=== PATIENT | male | born 1940 | race Caucasian/White ===

== ENCOUNTER → 2017-03-15 | Outpatient (CLI) | payer OTHER ==
[~2017-03-15] MED LIST: ANDROGEL5 GM TD; CIPROFLOXACIN500 M1 PO; FLAGYL 250 MG250 MG PO; FLAGYL500 MG PO; LISINOPRIL20 MG PO; MINIPRIN81 MG PO; NEURONTIN100 MG PO; NORCO 5-325 TA1 EACH PO; ZOFRAN ODT4 MG PO
[2017-03-15 08:49] LABS: CREATININE 1.3 mg/dL (0.7-1.3)
== END ==
LOC: CAT 07:42
PROVIDERS: Family Medicine
DX: R10.84 Generalized abdominal pain (principal)

== ENCOUNTER → 2017-03-25 | Outpatient (CLI) | payer OTHER ==
[2017-03-25] VITALS (7 sets, daily range): BP systolic 112–146; BP diastolic 61–76
[~2017-03-25] VITALS: Ht 182.9 cm; Wt 97.5 kg
[~2017-03-25] MED LIST changes: +OMEPRAZOLE 20 M20 MG PO
--- NOTE | ~2017-03-25 | S ---
[facility] [address] [place] [address] SURGICAL PATH RPT PROCEDURE Name: ARELIS SHAY Room #: REG DIANDRA Narvaez#: [id number] Admission: 03/25/17 Date of : 42 Discharge: Report #: [id number] Path Case #: [id number] PATHOLOGY REPORT DRAFT COLLECTION DATE: 03/25/2017 RECEIVED DATE: 03/25/2017 SPECIMEN(S) RECEIVED: A.Abdomimal lymph node bx
[2017-03-25 09:40] LABS: HEMATOCRIT 42.2 % (42.0-52.0); HEMOGLOBIN 14.2 gm/dL (14.0-18.0); MCH 30.8 pg (26.0-34.0); MCHC 33.6 g/dL (28.0-37.0); MCV 91.5 fL (80.0-100.0); RBC 4.62 mil/uL (4.50-6.00); RDW 13.5 % (10.5-14.5); WBC 8.2 thou/uL (4.0-11.0)
[2017-03-25 09:46] LABS: CALCIUM 9.9 mg/dL (8.5-10.1); CREATININE 1.4 mg/dL (0.7-1.3); POTASSIUM 4.8 mmol/L (3.5-5.1)
[2017-03-25 09:53] LABS: APTT 25.8 Seconds (24.5-32.8); PROTIME 10.7 Seconds (9.3-11.4)
== END | disposition home or self-care (01) ==
LOC: CAT 08:09
PROVIDERS: Family Medicine
DX: I89.8 Other specified noninfective disorders of lymphatic vessels and lymph nodes (principal); I10 Essential (primary) hypertension; G62.9 Polyneuropathy, unspecified; Z80.9 Family history of malignant neoplasm, unspecified; Z87.891 Personal history of nicotine dependence

== ENCOUNTER → 2017-04-04 | Outpatient (CLI) | payer OTHER ==
[2017-04-04 09:55] LABS: CREATININE 1.4 mg/dL (0.7-1.3)
== END ==
LOC: CAT 09:16 → EDSTATUS 09:31 → CAT 09:32
PROVIDERS: Family Medicine
DX: R59.9 Enlarged lymph nodes, unspecified (principal); R06.09 Other forms of dyspnea

== ENCOUNTER 2017-04-29 05:14 | Day surgery (SDC) | payer OTHER ==
[~2017-04-29] VITALS: Ht 177.8 cm; Wt 99.3 kg
--- NOTE | ~2017-04-29 | S ---
[facility] [address] [place] [address] SURGICAL PATH RPT PROCEDURE Name: ARELIS SHAY Room #: DEP [facility].#: [id number] Admission: 04/29/17 Date of : 42 Discharge: 04/29/17 Report #: [id number] Path Case #: [id number] PATHOLOGY REPORT COLLECTION DATE: 04/29/2017 RECEIVED DATE: 04/29/2017 SUBMITTING PHYS: Dr. Natacha White OTHER PHYS: Dr. 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 (see comment) [facility]NOPTIC CANCER STAGING REPORT SPECIMEN Specimen: Lymph node(s) Procedure: Biopsy Tumor Site: Lymph node(s) Specify Site(s): mesenteric TUMOR Histologic Type (Based on the 2008 WHO Classification): Mature B-Cell Neoplasms Follicular lymphoma SPECIAL STUDIES Immunophenotyping (Flow Cytometry and / or Immunohistochemistry): Performed, see separate report: flow cytometry [facility] [id number] COMMENT: Sections show fragments of partial residual lymph node and fibroadipose connective tissue with extensive involvement by an atypical lymphoid infiltrate. The atypical lymphocytes are predominantly small in size with irregular to angulated nuclear contours, condensed chromatin, and scant to moderate cytoplasm. From low power, it is predominantly a diffuse pattern with a background fibrocollagenized stroma. Focal areas of a follicular architecture with back to back follicles containing slightly larger irregular lymphoid cells are identified. Neither a high mitotic rate nor [address] [address] SURGICAL PATH RPT PROCEDURE Name: JASPALARELIS ROGERS Room #: DEP [facility].#: [id number] Admission: 04/29/17 Date of : 42 Discharge: 04/29/17 Report #: [id number] Path Case #: [id number] abundant single cell necrosis is seen. Geographic necrosis is not identified. To confirm the flow cytometric findings and to identify cells in a tissue architectural context, properly controlled immunohistochemical stains are performed: (Block A1) PAX-5: stains the neoplastic B cells diffusely and in follicles CD3: stains admixed T cells CD10: B cell co-expression in diffuse and follicular areas BCL-6: B cell co-expression in diffuse and follicular areas BCL-2: patchy staining, the neoplastic follicles appear non-reactive CD23: stains residual follicular dendritic cell meshwork in the follicular area MUM-1: essentially non-reactive Cyclin D-1: essentially non-reactive Ki-67: highlights a proliferative index of approximately 30-40% Flow cytometric immunophenotypic analysis was performed at [facility] ([facility]). The diagnosis is "CD10 positive monoclonal B cells detected." There are 92.4% lymphocytes. Of the lymphocytes, there are 69% T-cells with a CD4/CD8 ratio of 3.1 and no aberrant T-cell antigen expression and 33% mature B cells. The mature B cells are small in size based on the forward scatter pattern and show CD5 neg, dim CD10 pos, CD11C neg, CD19 pos, CD20 pos, CD23 neg with surface kappa light chain restriction. Flow cytometry shows monoclonal B cells (23% of total cells) with dim CD10 expression without CD5 or CD11C consistent with a CD10 positive B cell lymphoproliferative disorder. Please see separate flow cytometry report from [facility] ([facility]) ([id number]). Overall, the diagnosis is low-grade follicular lymphoma. It is grade 1-2 of 3 with both a follicular and diffuse pattern. The H and E stained slides are co-reviewed with Dr. Vielka Mccoy. The case is discussed with Dr. Natacha White on 05/01/17 at approximately 1:30 PM. (CLW:; 05/01/2017) PATHOLOGIST: Mel Diaz M.D. REPORT ELECTRONICALLY SIGNED BY: Mel Diaz M.D. DATE/TIME: 05/01/2017 21:41 * * * * * * * * * * * * GROSS PATHOLOGY: The specimen is received in formalin labeled "Arelis Shay, mesenteric biopsy". Received are multiple segments of white-allan to yellow-allan lobulated tissue measuring 5.3 x 3.2 x 0.6 cm in aggregate [address] [address] SURGICAL PATH RPT PROCEDURE Name: ARELIS SHAY Room #: DEP [facility].#: [id number] Admission: 04/29/17 Date of : 42 Discharge: 04/29/17 Report #: [id number] Path Case #: [id number] dimensions. A portion of the specimen was placed in RPMI solution and forwarded on to [facility] for flow cytometry studies from [facility]. The remainder the specimen is submitted entirely in cassettes A1 through A6. (CAA; 04/29/2017) CLINICAL HISTORY: Abdominal mass INITIAL CPT CODE(S): A; 21279, 42394, 75777, 71089, 82960, 52341, 57578, 77831, 59904, 71976 Professional services performed by [facility] at [facility] [address] [place] [address] Technical services performed by [facility] at [address] [place] [address], [address], [place] [address]. [facility] [address] [place], [place] [address] [place] [address] PHONE: [phone] DIRECTOR: Migel Huggins M.D. * * * END OF REPORT * * *
--- NOTE | ~2017-04-29 | CNG ---
[facility] [place] [address] [place] [address] CYTO-NONGYN REPORT PROCEDURE Name: NIKHIL SHAY Room #: DEP [facility]#: [id number] Admission: 04/29/17 Date of : 42 Discharge: 04/29/17 Report #: [id number] Path Case #: [id number] CYTOPATHOLOGY REPORT COLLECTION DATE: 04/29/2017 RECEIVED DATE: 04/29/2017 SUBMITTING PHYS: Dr. Natacha White OTHER PHYS: Dr. Kemi Gonsalez CLINICAL HISTORY: Abdominal mass. See also [id number]. SPECIMEN(S) RECEIVED: A.Peritoneal fluid * * * * * * * * * * * * FINAL DIAGNOSIS: A. Peritoneal fluid: - No malignant epithelial cells identified. - Highly reactive mesothelial cells identified. - Numerous lymphocytes present (see comment). 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 Please refer to separate reports to follow. The lymphocytes present in the current cytology likely represent the same. No additional studies are performed. PATHOLOGIST: Vielka Mccoy M.D. REPORT ELECTRONICALLY SIGNED BY: Vielka Mccoy M.D. DATE/TIME: 04/30/2017 16:51 * * * * * * * * * * * * GROSS PATHOLOGY: A. Peritoneal fluid: The specimen is submitted unfixed, labeled "Nikhil Shay". Received by the Cytology Department is 40 mL of white milky fluid. One ThinPrep slide and a formalin fixed cell block were prepared. (lg 04.29.2017) MOTOR TUNE UP SPECIALIST(S): NAOMY Foster([facility]) INITIAL CPT CODE(S): A; 24854, 79266 Professional services performed by [facility] at [address] [address] Technical services performed by [facility] at [address] [place] [address] CYTO-NONGYN REPORT PROCEDURE Name: NIKHIL SHAY Room #: [facility] M.R.#: [id number] Admission: 04/29/17 Date of : 42 Discharge: 04/29/17 Report #: [id number] Path Case #: [id number] [place] [address]. [facility] [address] [place] [address] PHONE: [phone] DIRECTOR: Migel Huggins M.D. * * * END OF REPORT * * *
--- NOTE | ~2017-04-29 | EKG ---
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
--- NOTE | ~2017-04-29 | O ---
[facility] [place] [address] [place] [address] OPERATIVE REPORT Name: ARELIS SHAY Room #: [facility].#: [id number] Admission: 04/29/17 Attend Phys: Natacha White MD, Discharge: 04/29/17 Date of : 42 Report #: [id number] THIS REPORT FOR: //name// CC: Natacha Gonsalez DATE OF SERVICE: 04/29/2017 PREOPERATIVE DIAGNOSES: 1. 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 2. Multiple prior bouts of diverticulitis. 3. Hypertension. 4. Neuropathy. 5. History of right upper arm benign tumor, status post excision. POSTOPERATIVE DIAGNOSES: 1. 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 2. Multiple prior bouts of diverticulitis. 3. Hypertension. 4. Neuropathy. 5. History of right upper arm benign tumor, status post excision. PROCEDURE: Laparoscopic excisional, biopsies of multiple mesenteric masses with the largest measuring 13 x 10 cm. SURGEON: Natacha White M.D. CONCRETE BUSTER OPERATOR: Dhiraj Wu MS3 ANESTHESIA: General endotracheal anesthesia. ESTIMATED BLOOD LOSS: Minimal (less than 5 mL). COMPLICATIONS: None appreciated. SPECIMENS: 1. All excised mesenteric masses to pathology (five separate specimens). 2. Intraabdominal fluid for cytology. INDICATIONS: The patient is a 76-year-old male with a history of multiple bouts of diverticulitis for which he underwent CT scan of the abdomen and pelvis. The CT scan has shown a marked inflammatory mass effect that has progressively worsened that encompasses the aorta, celiac access and superior mesenteric artery with tracking into the root of the mesentery. The patient has undergone percutaneous needle biopsy with pathology returning inconclusive and as such, indication was for surgical biopsy today. Intraoperative findings of [facility] [address] [place] [address] OPERATIVE REPORT Name: JASPALARELIS [facility] #: [facility] [id number] Admission: 04/29/17 Attend Phys: Natacha hWite MD, Discharge: 04/29/17 Date of : 42 Report #: [id number] chylous-appearing fluid were found for which this was aspirated and sent for cytology in addition to excision of multiple mesenteric masses. DESCRIPTION OF PROCEDURE: After explaining the risks, benefits and alternatives of the procedure with the patient in detail and obtaining consent, the patient was brought to the operating room and placed supine on the operating room table. After conducting a thorough timeout procedure, verifying correct patient and procedure, the patient was given general endotracheal anesthesia. Once adequate anesthesia was obtained, SCDs were hooked up to pneumatic compression device, he was given a preoperative dose of antibiotics in line with the SCIP protocol. The patient's abdomen was prepped and draped in standard surgical sterile fashion. 5 mL of 0.5% Marcaine with epinephrine were used to anesthetize the skin in the left upper quadrant and midclavicular line. A #15 bladed scalpel was used to create a small skin gregg at this location. A 5 mm Visiport was placed over 0-degree 5-mm laparoscope and was introduced through this incision site. Once intraabdominal placement was verified visually, the obturator for the trocar and laparoscope were both removed and the abdomen was insufflated to 15 mmHg using carbon dioxide gas. The laparoscope was changed to a 5-mm 30-degree laparoscope, which was reintroduced through this trocar. The entire abdomen was evaluated to ensure no injury upon entry. I now proceeded to place two trocars in the left flank. A 12 mm port was placed lateral to the umbilicus at the anterior axillary line and an additional 5 mm port was placed in the left lower quadrant. Both additional trocars were placed under direct vision after anesthetizing the skin at each location with 5 mL of 0.5% Marcaine with epinephrine and I had created appropriately sized skin nicks using #15 bladed scalpel. Laparoscope was placed to the 12 mm port, and I proceeded to identify the intra-abdominal domain. There was marked chylous ascites that were suctioned out and sent off the field as specimen through a Lueken's trap for cytology. There was an obvious bulky mass effect at the root of the mesentery of the small bowel and the central mesentery that was firm and friable. I was able to elevate the small bowel cephalad to expose the root of the mesentery and using in combination of Harmonic scalpel as well as hook electrocautery, I proceeded to resect numerous mesenteric masses as well as take shave biopsy specimen off of the largest mass that measured 13 x 10 cm in dimension. Ultimately, five separate masses were excised for pathologic diagnosis. Hemostasis was assured with electrocautery. The bowel itself did not appear involved nor compromised through excising these masses and all energy used was well away from the bowel wall at all times. I did place Mayur in the resection bed for assistance with long-term hemostasis. A laparoscope was placed back in the left upper quadrant trocar and the EndoCatch bag was placed in the 12 mm port. I then placed all the resection specimens in the EndoCatch bag, pulled the drawstring and removed it under direct vision with ease. I then closed the 12 mm fascial incision using 0 PDS suture on a Arun-Eusebia needle under direct vision. This was tied down under direct vision to ensure I did not catch a loop of bowel or omentum in the suture repair. All remaining ports were removed under direct vision after fully desufflating the abdomen. A 4-0 [facility] [address] [place] [address] OPERATIVE REPORT Name: ARELIS SHAY Room #: DEP [facility].#: [id number] Admission: 04/29/17 Attend Phys: Natacha White MD, Discharge: 04/29/17 Date of : 42 Report #: [id number] Monocryl was used in a standard subcuticular fashion for all skin incisions and Dermabond glue was applied to all skin wounds. At the end of the procedure, all instrument, needle and sponge counts were correct. The patient tolerated the procedure without incident, was awakened in the operating room and transitioned to the recovery room in stable condition with no apparent complications. All resection specimens were passed off the field to pathology fresh for lymphoma protocol. <ELECTRONICALLY SIGNED> By: Natacha White MD, FACS 04/29/17 1424 1053 1228 Natacha White MD, FACS /nt
[~2017-04-29 05:14] MED LIST changes: +ALEVE220 MG PO; +ASPIR 8181 MG PO; +METAMUCIL PAC1 UDPKT PO; +NEURONTIN300 MG PO; +OMEPRAZOLE 20 M20 M1 PO
[2017-04-29 06:20] VITALS: BP 110/72
[2017-04-29] MEDS ORDERED: NORCO 5-325 TA1 EACH PO (09:00)
[2017-04-29] MEDS ORDERED: SENOKOT-S1 TA1 PO (09:00)
[2017-04-29 09:21] VITALS: BP 110/72
== END 2017-04-29 09:50 | disposition home or self-care (01) ==
LOC: OR 05:14 → TBA 05:14 → OR 09:50
DX: C82.13 Follicular lymphoma grade II, intra-abdominal lymph nodes (principal); G62.9 Polyneuropathy, unspecified; Z79.82 Long term (current) use of aspirin; Z79.899 Other long term (current) drug therapy; Z87.891 Personal history of nicotine dependence; I10 Essential (primary) hypertension; Z98.890 Other specified postprocedural states
CPT/HCPCS: 50010; 50093; 50101; 50249; 50386; 50455; 50555; 50558; 50900; 50962; 51489; 51975; 52265; 52266; 52287; 53307; 54022; 54118; 56462; 56525; 56526; 57092; 62110; 62900; 70005

== ENCOUNTER 2017-04-29 18:32 | Emergency (ER) | payer OTHER ==
[~2017-04-29] VITALS: Ht 177.8 cm; Wt 97.5 kg
--- NOTE | ~2017-04-29 | EKG ---
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[facility] : 1940 Requested By: Emerson Owen Order Number: [id number] MD: Jonah Vargas Measurements Intervals [place] Rate: 87 P: 47 [place]: 174 QRS: 24 QRSD: 86 T: 30 QT: 338 QTc: 407 Interpretive Statements Sinus rhythm Small inferior Q waves Compared to ECG 03/26/2011 07:52:23 No significant change was found Electronically Signed On 04-30-2017 17:51:02 CDT by Jonah Vargas [email or web address] <ELECTRONICALLY SIGNED> By: Jonah Vargas MD, [facility] 04/30/17 1751 1905 04 Jonah Vargas MD, FACC /EPI
[~2017-04-29 18:32] MED LIST changes: +SENOKOT-S1 TA1 PO
[2017-04-29 19:34] LABS: ABSOLUTE NEUTROPHILS 9.8 thou/uL (1.4-8.2); BASOPHILS 0.6 % (0.0-2.0); HEMATOCRIT 42.3 % (42.0-52.0); HEMOGLOBIN 14.3 gm/dL (14.0-18.0); LYMPHOCYTES 8.4 % (24.0-44.0); MCH 30.5 pg (26.0-34.0); MCHC 33.9 g/dL (28.0-37.0); MCV 89.8 fL (80.0-100.0); MONOCYTES 2.7 % (1.0-8.0); PLATELET COUNT 189 thou/uL (150-400); POLYS 88.3 % (36.0-66.0); RBC 4.71 mil/uL (4.50-6.00); RDW 13.8 % (10.5-14.5); WBC 11.1 thou/uL (4.0-11.0)
[2017-04-29 19:35] LABS: MANUAL DIFF NO
[2017-04-29 19:48] LABS: ANION GAP 14 mmol/L (7-16); BUN 22 mg/dL (7-18); CALCIUM 9.8 mg/dL (8.5-10.1); CHLORIDE 96 mmol/L (98-107); CO2 20 mmol/L (21-32); CREATININE 1.4 mg/dL (0.7-1.3); GLUCOSE 155 mg/dL (74-106); POTASSIUM 4.6 mmol/L (3.5-5.1); SODIUM 130 mmol/L (136-145)
[2017-04-29 19:55] LABS: URINE BILIRUBIN NEGATIVE (Negative); URINE BLOOD 1+ (Negative); URINE COLOR YELLOW; URINE GLUCOSE-RANDOM* NEGATIVE (Negative); URINE KETONES NEGATIVE (Negative); URINE LEUKOCYTES-REFLEX NEGATIVE (Negative); URINE PROTEIN (DIPSTICK) NEGATIVE (Negative); URINE UROBILINOGEN 0.2 E.U./dl (0.2-1.0)
[2017-04-29 19:56] LABS: TROPONIN-I < 0.04 ng/mL (<0.04-0.07)
[2017-04-29 20:02] LABS: SQUAMOUS 0-3 Few /LPF (0-3)
[2017-04-29 20:03] LABS: CASTS None Seen /LPF (None Seen); CRYSTALS None Seen /LPF (None Seen); URINE RBC 0-2 Rare /HPF (0-2); URINE WBC-REFLEX None Seen /HPF (0-5)
== END 2017-04-29 20:58 | disposition home or self-care (01) ==
LOC: ER 18:32
PROVIDERS: Emergency Medicine
DX: R33.9 Retention of urine, unspecified (principal); N99.89 Other postprocedural complications and disorders of genitourinary system; R06.00 Dyspnea, unspecified; I10 Essential (primary) hypertension; G62.9 Polyneuropathy, unspecified; F10.99 Alcohol use, unspecified with unspecified alcohol-induced disorder; Z90.89 Acquired absence of other organs

== ENCOUNTER 2017-05-28 08:30 | Inpatient (IN) | payer OTHER ==
[2017-05-28] VITALS (24 sets, daily range): BP systolic 83–118; BP diastolic 43–102
[~2017-05-28] VITALS: Ht 177.8 cm; Wt 103.4 kg
--- NOTE | ~2017-05-28 | 2DMMODE ---
[facility] [email or web address] [address] 2 D/M-MODE ECHOCARDIOGRAM Name: JASPALARELIS ROGERS Room #: 237-P ADM IN M.R.#: [id number] Admission: 05/28/17 Attend Phys: Luis Man Discharge: Date of : 42 Date of Service: 05/29/17 1040 Report #: [id number] THIS REPORT FOR: //name// APPROVED REPORT Study performed: 05/29/2017 08:51:18 EXAM: Comprehensive 2D, Doppler, and color-flow Echocardiogram Patient Location: ICU Room #: [facility] Status: routine BSA: 2.21 HR: 75 bpm BP: 105/54 mmHg Other Information Study Quality: Fair Indications Dyspnea Hypertension/HDD Echo Enhancing Agent Indication: Endocardial border delineation Agent(s) / Amount(s) Used: Optison 3 cc 2D Dimensions LVEF(%): 57.48 (>50%) IVSd: 10.97 (7-11mm) LVOT Diam: 22.50 (18-24mm) LVDd: 44.92 mm PWd: 10.38 (7-11mm) Ascending Ao: 31.06 (22-36mm) LVDs: 31.41 (25-40mm) Aortic Root: 32.19 mm IVC: 23.00 mm Montero's LVEF: 57.48 % Aortic Valve AoV Peak Ashvin.: 1.31 m/s AO Peak Gr.: 6.91 mmHg LVOT Max P.22 mmHg LVOT Max V: 1.14 m/s JORGE Vmax: 3.46 cm2 Mitral Valve E/A Ratio: 1.2 MV Decel. Time: 191.51 ms MV E Max Ashvin.: 0.93 m/s [facility] [address] [place] [address] 2 D/M-MODE ECHOCARDIOGRAM Name: ARELIS SHAY Room #: 237-[facility].#: [id number] Admission: 05/28/17 Attend Phys: Luis Man Discharge: Date of : 42 Date of Service: 05/29/17 1040 Report #: [id number] MV A Ashvin.: 0.75 m/s MV PHT: 55.54 ms IVRT: 69.20 ms Pulmonary Valve PV Peak Ashvin.: 0.97 m/s PV Peak Gr.: 3.78 mmHg Pulmonary Vein P Vein S: 0.38 m/s P Vein A: 0.30 m/s P Vein D: 0.22 m/s P Vein A Dur.: 129.2 msec P Vein S/D Ratio: 1.73 Left Ventricle The left ventricle is normal size. There is normal left ventricular wall thickness. The left ventricular systolic function is normal. The left ventricular ejection fraction is within the normal range. LVEF is >55%. The left ventricular diastolic function is normal. Right Ventricle The right ventricle is normal size. The right ventricular systolic function is normal. Atria The left atrium size is normal. The right atrium size is normal. Aortic Valve The aortic valve is normal in structure. No aortic regurgitation is present. There is no aortic valvular stenosis. Mitral Valve The mitral valve is normal in structure. There is no mitral valve regurgitation noted. No evidence of mitral valve stenosis. Tricuspid Valve The tricuspid valve is normal in structure. There is no tricuspid valve regurgitation noted. Pulmonic Valve The pulmonary valve is normal in structure. There is no pulmonic valvular regurgitation. Great Vessels The aortic root is normal in size. IVC is dilated and collapses >50% with inspiration. [facility] [address] [id number] 2 D/M-MODE ECHOCARDIOGRAM Name: ARELIS SHAY Room #: 237-P [facility] IN .R.#: [id number] Admission: 05/28/17 Attend Phys: Luis Man Discharge: Date of : 42 Date of Service: 05/29/17 1040 Report #: [id number] Pericardium There is no pericardial effusion. <Conclusion> The left ventricle is normal size. LVEF is >55%. The aortic valve is normal in structure. The mitral valve is normal in structure. The left atrium size is normal. The aortic valve is normal in structure. The mitral valve is normal in structure. The tricuspid valve is normal in structure. The pulmonary valve is normal in structure. The aortic root is normal in size. <ELECTRONICALLY SIGNED> By: Vijay Howard MD 05/29/17 1040 1040 1040 Vijay Howard MD /INF
--- NOTE | ~2017-05-28 | HC ---
[facility] [place] [address] CONSULTATION Name: ARELIS SHAY Room #: 237-P ADM IN M.R.#: [id number] Admission: 05/28/17 Attend Phys: Luis Man MD Discharge: Date of : 42 Report #: [id number] THIS REPORT FOR: //name// CC: Luis Gonsalez REASON FOR CONSULTATION: I was asked to evaluate concerning possible sepsis in the setting of chemotherapy for lymphoma. HISTORY OF PRESENT ILLNESS: The patient was a 76-year-old diagnosed with lymphoma involving his abdominal nodes. No bone marrow biopsy was obtained. Started on Rituxan and Treanda on 05/13/2017. Although he has had no neutropenia, he has had temperatures up to 102 degrees over the last week. He was placed on Levaquin initially without improvement. Therefore, admitted because of progressive weakness. He reports progressive shortness of breath. Some peripheral edema. No headache. Mild mucosal irritation to his mouth. No abdominal pain or vomiting. He has had loose liquid stools for the past 6 months. No blood in the stools identified. No dysuria or frequency. No arthritis symptoms or rash. No travel. No other exposures to ill persons. ALLERGIES: None known. MEDICATIONS: As noted on his MAR, recently on Levaquin, now given a dose of Zosyn. PAST MEDICAL HISTORY: Hypertension, right rotator cuff surgery, pilonidal cyst removal, tonsillectomy, bilateral cataract surgeries, diverticulitis. FAMILY HISTORY: Noncontributory. SOCIAL HISTORY: Past smoker. No significant alcohol intake. REVIEW OF SYSTEMS: Upon arrival to the Emergency Room, he was found to be hypotensive with blood pressures in the 70s. Mental status remained normal. He had poor urine output, was given IV fluids and transferred to the intensive care unit for further treatment and monitoring. Review of systems otherwise negative other than what has been described above. PHYSICAL EXAMINATION: VITAL SIGNS: Afebrile, pulse 71, respiratory rate 18, blood pressure 87/47. GENERAL: He was alert and cooperative and on room air, his O2 saturation was 95%. SKIN: Unremarkable. LYMPHATIC: Small node evident in the right axilla. HEENT: With dry mucous membranes. Mild mucositis involving his gingiva and angular cheilitis. NECK: Supple. [address] [address] CONSULTATION Name: ARELIS SHAY Room #: [address] [place] [address] [place] .R.#: [id number] Admission: 05/28/17 Attend Phys: Luis Man MD Discharge: Date of : 42 Report #: [id number] LUNGS: Clear. HEART: Regular, without murmur. ABDOMEN: Soft, no hepatosplenomegaly or mass appreciated. EXTREMITIES: Trace peripheral edema. NEUROLOGIC: Normal. LABORATORY AND DIAGNOSTIC STUDIES: Lactate 2.3. Venous ultrasound of the lower extremities was negative for DVT. Urinalysis unremarkable. Liver function tests normal. Hemoglobin 12.8, WBC 10.2, platelet count 94,000, differential unremarkable. Sodium 129, potassium 4.2, bicarbonate of 19, creatinine 3.4. BNP 7657. Chest x-ray, no acute infiltrates. IMPRESSION: A 76-year-old undergoing chemotherapy for lymphoma, presents with hypotension, fever, acute renal failure, metabolic acidosis, and dyspnea. I question whether some of this is drug-induced changes. Source of infection yet not identified with no evidence of end-organ disease thus far. He is not neutropenic. PLAN: Recommend IV fluids, empiric broad antibiotic coverage pending culture results. Followup chest x-ray, obtain echocardiogram, monitor stool output noting that in March 2017, he had a CT scan with lesions at the root of the mesentery with chronically occluded superior mesenteric artery. <ELECTRONICALLY SIGNED> By: Ashish Louis MD 05/29/17 1339 1544 0139 Ashish Louis MD /nt
--- NOTE | ~2017-05-28 | D ---
[facility] [address] DISCHARGE SUMMARY Name: ARELIS SHAY Room #: 408-P [facility] IN .R.#: [id number] Admission: 05/28/17 Attend Phys: Luis Man MD Discharge: 05/31/17 Date of : 42 Report #: [id number] THIS REPORT FOR: //name// CC: Luis Gonsalez DATE OF SERVICE: 05/31/2017 HISTORY OF PRESENT ILLNESS: The patient is a 76-year-old man with newly diagnosed lymphoma who had first chemotherapy on 05/13/2017. The patient came to the hospital with fever, lightheadedness and acute renal failure. Blood pressure was in 80s. Please refer to the admission H and P for details. HOSPITALIZATION COURSE: The patient was hospitalized for known neutropenic fever, suspected sepsis, acute renal failure. The exact etiology of fever was not known. Infectious Disease specialist was consulted. The patient was started on broad-spectrum antibiotics. Cardiac echo was obtained that showed normal ejection fraction. The patient has remained afebrile during the hospital stay. Chest x-ray was normal, blood culture showed no growth, and urinalysis was unremarkable. On IV fluids, and with improving blood pressure, kidney function improved as well. Structural [employer] Equipment Erector saw the patient. NSAIDs and DUNIA inhibitors were discontinued. Creatinine on admission was 3.4. Currently, creatinine is 1.3. With improvement of blood pressure and electrolytes, the patient felt much better. The patient has remained afebrile. Cultures showed no growth. Currently, the patient's condition is acceptable as documented in the patient's chart. DISCHARGE DIAGNOSES: 1. No neutropenic fever, exact source is unknown. The patient is currently afebrile. Omnicef will be continued for 1 more week. 2. Acute renal failure on chronic kidney disease, stage 3. Most likely due to combination of hypotension, nonsteroidal anti-inflammatory drugs and DUNIA inhibitor. Resolved. Creatinine today is 1.3, from 3.5 on admission. 3. Hyponatremia, resolved on intravenous fluids. 4. Shortness of breath on admission, resolved. Lungs are clear, oxygen saturation remains normal, x-ray is clear and lower extremity Doppler ultrasound is negative for deep venous thrombosis. SECONDARY DIAGNOSES: Include newly diagnosed lymphoma, followed by oncologist. Hypertension, peripheral neuropathy. DISPOSITION: The patient is discharged home. [address] [address] DISCHARGE SUMMARY Name: ARELIS SHAY Room #: 408-P [facility] IN .R.#: [id number] Admission: 05/28/17 Attend Phys: Luis Man MD Discharge: 05/31/17 Date of : 41 Report #: [id number] DISCHARGE MEDICATIONS: Please refer to the medication reconciliation list. As noted, Omnicef will be continued for 1 week. FOLLOWUP PLAN: The patient will follow up in Oncology Clinic as advised in 1-2 weeks. I spent greater than 30 minutes to coordinate the patient's discharge from the hospital. By: 1145 2046 Luis Man MD /nt
--- NOTE | ~2017-05-28 | HC ---
[facility] [place] [place] [address] CONSULTATION Name: ARELIS SHAY Room #: 408-P ADM IN M.R.#: [id number] Admission: 05/28/17 Attend Phys: Luis Man MD Discharge: Date of : 41 Report #: [id number] THIS REPORT FOR: //name// CC: Kayy Gonsalez patient's primary physician REASON FOR CONSULTATION: History of lymphoma and fever. 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 The patient began chemotherapy of Treanda given for 2 days, rituximab given 1 day about May 09 or shortly after that after he had received education. He had been feeling a little bit better perhaps and ____ chemo and then maybe about a week and a half ago began having some low-grade fevers as an outpatient. His counts were stable, but because of the concern about possible infection, he was begun on Levaquin antibiotic. This did not improve. He was noted to be progressively weaker. He was seen by his daughter who checked his blood pressure yesterday, and I believe his systolic was in the 70s and he came to the Emergency Room for evaluation. Here, his systolic blood pressure was low that was confirmed. He was also found to have a creatinine that was up to 3.4, which is higher than usual for him. He was admitted for possible sepsis as his lactic acid was elevated. He did have the fever and does not know that he had any last night. He has not had really nausea and vomiting. He thinks he has been eating and drinking fairly well, but it is probably slightly decreased. He does have discomfort on the soft palate of his mouth ____ tender in general. He has not used any specific medicines for it. He does not feel like his breathing is any worse other than being fatigued. He does not have any new skin rash. He does not have any new adenopathy. His belly pain for which we began the chemotherapy may be slightly better as we think that it was related to the lymphoma. He still has his chronic some leg swelling but not much worse than usual. No new diarrhea, though he does have sort of loose bowels. No blood in his urine or stool. PAST MEDICAL HISTORY: Notable for the diagnosis of follicular grade 1-2 lymphoma, status post first round of chemotherapy with Treanda and rituximab about 2 weeks ago, unclear at this time whether it is responding or not. Also, history of diverticulitis in the past, history of some lymphadenopathy back in January 2015 of the axilla, but that had been after a febrile illness. Also a [facility] [address] [place] [address] CONSULTATION Name: ARELIS SHAY Room #: 408-P [facility] IN .R.#: [id number] Admission: 05/28/17 Attend Phys: Luis Man MD Discharge: Date of : 41 Report #: [id number] history of hypertension in the past. Leg pain at night. History of erythrocytosis, which probably in the past was related to testosterone usage. Also, he has some history of postoperative urinary retention. PAST SURGERIES: Bilateral cataract surgery and tonsillectomy and pilonidal cyst removal and a right rotator cuff surgery and also neuropathy. 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 Past smoker. No significant alcohol intake. ADDENDUM CURRENT MEDICATIONS: Include prednisone 20 mg a day, aspirin 81 mg a day, electrolyte replacement protocols, pantoprazole 40 mg daily, heparin 5000 units subq, Zosyn 2.25 grams q. 6 IV, Tylenol p.r.n., MiraLax p.r.n., Zofran p.r.n., nitroglycerin p.r.n. ALLERGIES: None known. PHYSICAL EXAMINATION: GENERAL: The patient appears his stated age. VITAL SIGNS: Height is 5 feet 10 inches, which is 177.8 cm; weight 103.4 kilograms, which is 229 pounds; blood pressure is recently 86/42 when he was admitted yesterday, it was 84/44, has been up to 115; O2 sat 97%, respirations 24, pulse 80, temperature 98.1. HEENT: Face is symmetrical. MOOD: He is alert, pleasant and conversant. NEUROLOGIC: His face is symmetric. His speech pattern is normal. He is moving all extremities. He is beginning to feed himself. LYMPHATICS: No enlarged lymph nodes in the supraclavicular, cervical, axillary or inguinal region. ABDOMEN: Obese, nontender, no masses. EXTREMITIES: Without clubbing or cyanosis. There may be some trace edema. Oropharynx does have the mucosal irritation on the soft palate not very red, but it just looks a little bit irritated. LABORATORY REVIEW: Here showed on admission a creatinine of 3.4 and now down to 2.3. Note the baseline back in April was 1.4. Transaminases normal. Albumin 1.8 today. Note that in the past, it had been 3.6. Lactic acid on admit had been 3.7 and was down to 2.3. White count yesterday 10.2, today 8.1. Hemoglobin today 11.4. Platelet count yesterday was 94 and today 115. The patient did have 2 atypical lymphocytes yesterday. Absolute neutrophils count is 7.1 thousand today. UA does not show any white cells or ketones. RADIOLOGIC STUDIES THIS ADMIT: Include an ultrasound of both legs, which did not reveal clots. Also, the patient had a portable chest x-ray yesterday that [address] [address] CONSULTATION Name: ARELIS SHAY Room #: [facility]- ADM IN .R.#: [id number] Admission: 05/28/17 Attend Phys: Luis Man MD Discharge: Date of : 41 Report #: [id number] showed no acute cardiopulmonary process identified. DISCUSSION: I called the patient's daughter, Awilda, at cell phone [phone] to discuss the case. I told her that I thought her dad was doing better that I expect him to be here in the hospital for perhaps 3-5 days and that it would be, of course, dependent upon whether he continues to make improvement, if cultures come back positive or other etiology of his sickness is found that we would also be probably pushing back chemotherapy at least 2 weeks and that it would be dependent upon how strong he is doing at that time. ASSESSMENT AND PLAN: 1. Follicular grade 1-2 low-grade lymphoma, ____ but clinically, it sounds like he might have been having some less abdominal symptoms. We will probably hold second round for a week or two until he gets stronger. 2. Viral episode. I would be suspicious of viral illness given the continued low-grade fever and the mild mucosal irritation of his soft palate. We will defer antibiotics, etc., to Dr. Win Louis. 3. Relative hypotension. We will defer medications for hypertension to others involved. 4. Urinary retention. We will defer Rapaflo use to them. 5. Renal insufficiency, improved. We will defer hydration. Most likely this might have been related to his use of nonsteroidals as an outpatient. 6. Weakness. Physical Therapy will see the patient. 7. Protein-calorie malnutrition. Dietary will most likely see the patient. We will most likely be using supplements. We will follow with you. <ELECTRONICALLY SIGNED> By: Peter Chambers MD 05/31/17 0801 0837 0047 Peter Chambers MD /nt
--- NOTE | ~2017-05-28 | EKG ---
[address] [place] [address] ELECTROCARDIOGRAM REPORT Name: ARELIS SHAY [id number] Admission: 05/28/17 Attend Phys: Discharge: Date of : 41 Report #: [id number] THIS REPORT FOR: //name// [facility] ED Test Date: 2017-05-28 Test Time: 08:44:54 Pat Name: ARELIS SHAY Department: Room: Gender: Buck Presser: NICHELLE : 1940 Requested By: Fior Hinkle Order Number: [id number] MD: Jose Ramon Owen Measurements Intervals [place] Rate: 87 P: 37 CA: 180 QRS: 14 QRSD: 89 T: -13 QT: 355 QTc: 427 Interpretive Statements Sinus rhythm Low voltage, extremity leads Electronically Signed On 05-28-2017 10:44:26 CDT by Jose Ramon Owen [email or web address] <ELECTRONICALLY SIGNED> By: Jose Ramon Owen MD 05/28/17 1044 0844 0844 Jose Ramon Owen MD /EPI
--- NOTE | ~2017-05-28 | HC ---
[facility] [place] [address] CONSULTATION Name: ARELIS SHAY Room #: 408-P [facility] IN M.R.#: [id number] Admission: 05/28/17 Attend Phys: Luis Man MD Discharge: 05/31/17 Date of : 41 Report #: [id number] THIS REPORT FOR: //name// CC: Luis Gonsalez REASON FOR CONSULTATION: Elevated creatinine. REASON FOR PRESENTATION: Weakness. HISTORY OF PRESENT ILLNESS: A 76-year-old with newly diagnosed lymphoma. He is known to have chronic kidney disease with a baseline creatinine of around 1.3. He presented to the hospital complaining of shortness of breath, dizziness, lightheadedness. He reported that his blood pressure has been on the low side. He also reported fever up to 102. He is going through cycles of chemotherapy for his newly diagnosed lymphoma and that includes rituximab and Treanda. He had been taking his blood pressure medications along with Aleve on a daily basis for the last couple of days before his presentation. He has no chest pain. There are no urinary symptoms. On presentation to the emergency room, he was found to have an elevated creatinine up to 3.4 mandating a Nephrology consultation. PAST MEDICAL HISTORY: 1. Hypertension. 2. Pilonidal cyst. 3. Tonsillectomy. 4. Cataract. 5. Diverticulitis. 6. Newly diagnosed lymphoma. SOCIAL HISTORY: Ex-smoker. 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 MEDICATIONS: 1. Lisinopril. 2. Aspirin. 3. Naproxen. 4. Omeprazole. 5. Prednisone. FAMILY HISTORY: Significant for hypertension. REVIEW OF SYSTEMS: GENERAL: Significant for fever and chills. CARDIOVASCULAR: Significant for shortness of breath. PULMONARY: No cough or hemoptysis. GASTROINTESTINAL: No nausea or vomiting. [facility] [address] [place] [address] CONSULTATION Name: ARELIS SHAY Room #: [address] [place] [address]#: [id number] Admission: 05/28/17 Attend Phys: Luis Man MD Discharge: 05/31/17 Date of : 41 Report #: [id number] GENITOURINARY: No frequency, no urgency. SKIN: No rash or ulcerations. PHYSICAL EXAMINATION: VITAL SIGNS: He is still hypotensive, blood pressure 86/42. Pulse rate 80. HEAD AND NECK: No jugular venous distention, no bruit, no thyromegaly. CARDIOVASCULAR: Regular with no rub detected. ABDOMEN: Soft, nontender with no hepatosplenomegaly. LOWER EXTREMITIES: No edema with intact peripheral pulses. LABORATORY VALUES: Reviewed. Most recent creatinine is actually down to 2.3. Sodium 129. Hemoglobin 11.4. Chest x-ray reviewed with no acute process. ASSESSMENT, IMPRESSION, PLAN: 1. Acute kidney injury. 2. Hyponatremia. 3. Hypomagnesemia. 4. Hypotension. 5. Fever in an immune compromised person. 6. Newly diagnosed lymphoma. 7. The patient's acute kidney injury is well explained by angiotensin converting enzyme inhibitor, nonsteroidal anti-inflammatory medications with hypotensive episodes. 8. Continue with aggressive fluid resuscitation. 9. He had made significant amount of urine in the last 24 hours and his creatinine is actually on the trend down. 10. I will bolus with intravenous fluid. 11. Pancultures. 12. Septic workup given his immune compromised status. 13. Antibiotic per Infectious Disease. 14. Discontinue lisinopril. 15. Discontinue Aleve. 16. Expect him to fully recover with hydration. <ELECTRONICALLY SIGNED> By: Kayy Rojas MD 06/05/17 1000 0811 2123 Kayy Rojas MD /nt
[2017-05-28] MEDS ORDERED: ALLOPURINOL 30300 M2 PO (08:44)
[2017-05-28] MEDS ORDERED: DOVONEX60 GM TOP (08:46)
[2017-05-28] MEDS ORDERED: LIDODERM1 EACH TRANSDERM (08:47)
[2017-05-28] MEDS ORDERED: ONDANSETRON ODT8 MG PO (08:49)
[2017-05-28] MEDS ORDERED: PREDNISONE 20 M20 MG PO (08:49)
[2017-05-28] MEDS ORDERED: RAPAFLO8 MG PO (08:50)
[2017-05-28 08:59] LABS: HEMATOCRIT 37.2 % (42.0-52.0); HEMOGLOBIN 12.8 gm/dL (14.0-18.0); MCH 30.5 pg (26.0-34.0); MCHC 34.3 g/dL (28.0-37.0); MCV 88.9 fL (80.0-100.0); RBC 4.18 mil/uL (4.50-6.00); RDW 14.4 % (10.5-14.5); WBC 10.2 thou/uL (4.0-11.0)
[2017-05-28 09:01] LABS: MANUAL DIFF YES
[2017-05-28 09:08] LABS: CALCIUM 9.1 mg/dL (8.5-10.1); CREATININE 3.4 mg/dL (0.7-1.3); POTASSIUM 4.2 mmol/L (3.5-5.1)
[2017-05-28 09:17] LABS: TROPONIN-I 0.07 ng/mL (<0.04-0.07)
[2017-05-28 09:22] LABS: ABSOLUTE NEUTROPHILS 8.9 thou/uL (1.4-8.2); TOTAL CELL COUNT 100
[2017-05-28 09:23] LABS: ANISOCYTOSIS 1+; ATYPICAL LYMPHS 2 %
[2017-05-28 09:24] LABS: PLATELET COUNT 94 thou/uL (150-400)
[2017-05-28 09:36] LABS: ALBUMIN 2.4 g/dL (3.4-5.0); ALKALINE PHOSPHATASE 67 U/L (46-116); DIRECT BILIRUBIN < 0.1 mg/dL (<0.1-0.3); SGOT 24 U/L (15-37); SGPT 30 U/L (30-65); TOTAL BILIRUBIN 0.4 mg/dL (<0.1-1.0); TOTAL PROTEIN 5.1 g/dL (6.4-8.2)
[2017-05-28 10:10] LABS: URINE BILIRUBIN NEGATIVE (Negative); URINE BLOOD NEGATIVE (Negative); URINE COLOR YELLOW; URINE GLUCOSE-RANDOM* NEGATIVE (Negative); URINE KETONES NEGATIVE (Negative); URINE LEUKOCYTES-REFLEX NEGATIVE (Negative); URINE PROTEIN (DIPSTICK) NEGATIVE (Negative); URINE SPECIFIC GRAVITY 1.025 (1.003-1.035); URINE UROBILINOGEN 0.2 E.U./dl (0.2-1.0)
[2017-05-29] VITALS (46 sets, daily range): BP systolic 78–138; BP diastolic 40–97
[2017-05-29 05:03] LABS: HEMATOCRIT 33.7 % (42.0-52.0); HEMOGLOBIN 11.4 gm/dL (14.0-18.0); MCH 30.3 pg (26.0-34.0); MCHC 33.8 g/dL (28.0-37.0); MCV 89.6 fL (80.0-100.0); PLATELET COUNT 115 thou/uL (150-400); RBC 3.76 mil/uL (4.50-6.00); RDW 14.3 % (10.5-14.5); WBC 8.1 thou/uL (4.0-11.0)
[2017-05-29 05:10] LABS: MANUAL DIFF YES
[2017-05-29 05:18] LABS: ALBUMIN 1.8 g/dL (3.4-5.0); CALCIUM 8.4 mg/dL (8.5-10.1); MAGNESIUM 1.3 mg/dL (1.8-2.4); POTASSIUM 4.4 mmol/L (3.5-5.1)
[2017-05-29 05:20] LABS: CREATININE 2.3 mg/dL (0.7-1.3)
[2017-05-29 05:46] LABS: ABSOLUTE NEUTROPHILS 7.1 thou/uL (1.4-8.2); TOTAL CELL COUNT 100; TOXIC GRANULATION SLIGHT
[2017-05-29 05:48] LABS: LARGE PLATELETS OCCASIONAL
[2017-05-30] VITALS (10 sets, daily range): BP systolic 99–134; BP diastolic 42–91
[2017-05-30 06:04] LABS: BASOPHILS 0.5 % (0.0-2.0); EOSINOPHILS 1.5 % (0.0-3.0); HEMATOCRIT 32.5 % (42.0-52.0); LYMPHOCYTES 14.8 % (24.0-44.0); MCH 30.3 pg (26.0-34.0); MCHC 33.9 g/dL (28.0-37.0); MCV 89.2 fL (80.0-100.0); PLATELET COUNT 135 thou/uL (150-400); POLYS 80.2 % (36.0-66.0); RBC 3.64 mil/uL (4.50-6.00); RDW 14.4 % (10.5-14.5); WBC 6.2 thou/uL (4.0-11.0)
[2017-05-30 06:15] LABS: MANUAL DIFF NO
[2017-05-30 06:19] LABS: ALBUMIN 1.8 g/dL (3.4-5.0); CALCIUM 8.6 mg/dL (8.5-10.1); CREATININE 1.5 mg/dL (0.7-1.3); PHOSPHORUS 3.1 mg/dL (2.5-4.9); POTASSIUM 4.3 mmol/L (3.5-5.1)
[2017-05-31 03:43] LABS: ABSOLUTE NEUTROPHILS 2.9 thou/uL (1.4-8.2); BASOPHILS 0.5 % (0.0-2.0); EOSINOPHILS 6.5 % (0.0-3.0); HEMATOCRIT 33.2 % (42.0-52.0); HEMOGLOBIN 11.5 gm/dL (14.0-18.0); MCH 30.7 pg (26.0-34.0); MCHC 34.6 g/dL (28.0-37.0); MCV 88.6 fL (80.0-100.0); PLATELET COUNT 142 thou/uL (150-400); RBC 3.75 mil/uL (4.50-6.00); RDW 14.2 % (10.5-14.5); WBC 4.1 thou/uL (4.0-11.0)
[2017-05-31 03:53] LABS: ALBUMIN 1.9 g/dL (3.4-5.0); CALCIUM 8.7 mg/dL (8.5-10.1); CREATININE 1.3 mg/dL (0.7-1.3); PHOSPHORUS 3.4 mg/dL (2.5-4.9); POTASSIUM 4.5 mmol/L (3.5-5.1)
[2017-05-31 04:04] LABS: MANUAL DIFF NO
[2017-05-31 04:20] VITALS: BP 103/54
[2017-05-31 07:36] VITALS: BP 119/51
[2017-05-31] MEDS ORDERED: CEFDINIR300 MG PO (11:47)
[2017-05-31 12:02] VITALS: BP 119/51
== END 2017-05-31 12:50 | disposition home or self-care (01) | DRG 682 ==
LOC: ER 08:30 → EROBS 10:52 → ICU 10:52 → EROBS 13:40 → ICU 14:01 → 4N 05-30 11:15 → ENTRNSPT 05-31 12:42 → EDTRNSPTSTS 05-31 12:44 → 4N 05-31 12:50
PROVIDERS: Emergency Medicine; Hospitalist; Internal Medicine Endocrinology, Diabetes & Metabolism; Nurse Practitioner
DX: N17.9 Acute kidney failure, unspecified (principal); E43 Unspecified severe protein-calorie malnutrition; E87.1 Hypo-osmolality and hyponatremia; C85.90 Non-Hodgkin lymphoma, unspecified, unspecified site; G62.9 Polyneuropathy, unspecified; E86.0 Dehydration; I95.9 Hypotension, unspecified; I12.9 Hypertensive chronic kidney disease with stage 1 through stage 4 chronic kidney disease, or unspecified chronic kidney disease; Z68.32 Body mass index [BMI] 32.0-32.9, adult; E83.42 Hypomagnesemia; R33.9 Retention of urine, unspecified; N18.3 Chronic kidney disease, stage 3 (moderate); D69.6 Thrombocytopenia, unspecified; Z79.1 Long term (current) use of non-steroidal anti-inflammatories (NSAID); Z98.42 Cataract extraction status, left eye; Z98.41 Cataract extraction status, right eye; Z87.891 Personal history of nicotine dependence
CPT/HCPCS: 10078; 10790

== ENCOUNTER 2017-11-08 21:36 | Inpatient (IN) | payer OTHER ==
[~2017-11-08] VITALS: Ht 177.8 cm; Wt 98.3 kg
--- NOTE | ~2017-11-08 | HC ---
[facility] [place] [address] CONSULTATION Name: ARELIS SHAY Room #: 410-P [facility] IN M.R.#: [id number] Admission: 11/09/17 Attend Phys: Andrews Riley MD Discharge: 11/11/17 Date of : 41 Report #: [id number] THIS REPORT FOR: //name// CC: Keith Cordon MD DATE OF SERVICE: 11/09/2017 HISTORY OF PRESENT ILLNESS: The patient is a 77-year-old male with abdominal pain. He has a history of retroperitoneal mass that was biopsied last fall and was consistent with a lymphoma. He has been followed by Dr. Chambers and has been undergoing chemotherapy. His last chemotherapy dose was 10/02/2017. The mass from previous CTs may be causing a mass effect on the celiac trunk and the SMA and the patient has a known stenosis in both of those areas. The patient states increased abdominal pain over the last week. The pain is fairly constant. It does not necessarily occur after a meal predictably. His weight has actually been fairly stable. He does have a history of chronic diarrhea. He has been seen by my partner, Dr. Azevedo in the past and was started on colestipol, which was helpful for his diarrhea. His last colonoscopy was in 2015, which was essentially negative. No previous history of upper endoscopy. He denies any dysphagia or odynophagia. He is taking an 81 mg aspirin. The pain he describes is primarily midepigastric and somewhat periumbilical. He denies any fevers or chills. No current nausea and vomiting, no chest pain or shortness of breath currently. Interventional Radiology was consulted for the possibility of stent placement; however, when comparing his previous CT scans, the amount of stenosis in the celiac and the SMA are essentially unchanged and since the patient is not having pain predictably after a meal and instead his pain is more constant, Radiology suspect this may be related to some other etiology. Of note, on the most recent CT, there is a possible duodenal wall thickening from possible metastatic disease or duodenitis and recommended endoscopy. PAST MEDICAL HISTORY: History of lymphoma, known mesenteric stenosis, hypertension, previous tonsillectomy, bilateral cataract surgery, previous history of diverticulitis, chronic diarrhea, previous rotator cuff surgery. REVIEW OF SYSTEMS: As per HPI. ALLERGIES: No known drug allergies. CURRENT MEDICATIONS: Pepcid, pantoprazole, Tylenol p.r.n., IV fluids, Zofran p.r.n., morphine p.r.n. [address] [address] CONSULTATION Name: ARELIS SHAY Room #: [facility] IN M.R.#: [id number] Admission: 11/09/17 Attend Phys: Andrews Riley MD Discharge: 11/11/17 Date of : 41 Report #: [id number] FAMILY HISTORY: Negative for colon cancer in immediate family members, although his uncle had a history of colon cancer. SOCIAL HISTORY: Denies any tobacco or alcohol use. PHYSICAL EXAMINATION: VITAL SIGNS: Temperature is 97.5, pulse 69, blood pressure is 159/78, respiratory rate is 17. GENERAL: He is alert and oriented x 3 in no acute distress. HEENT: Sclerae nonicteric. Oropharynx clear. NECK: Supple, without lymphadenopathy. CARDIOVASCULAR: Regular rate and rhythm. CHEST: Clear to auscultation bilaterally. ABDOMEN: Soft. He is mildly tender to palpation in the midepigastrium, nondistended. Positive bowel sounds. EXTREMITIES: No cyanosis, clubbing or edema. LABORATORY DATA: Sodium 135, potassium 3.8, chloride 101, bicarbonate 26, BUN 14, creatinine 1.1, glucose 139, AST 29, lipase 165, total bilirubin 0.3, calcium 9.5, magnesium 1.8, alkaline phosphatase 95, ALT is 25, total protein 6.7, albumin 3.4. Lactic acid level 1.3. Troponin less than 0.04. WBC is 5.8, hemoglobin 13.6, platelet count 133. ASSESSMENT AND PLAN: Abdominal pain. I had a long discussion with the patient and his family today, would recommend proceeding with an upper endoscopy since the CT did show a possible thickening in the duodenum. At that point, we will rule out duodenal ulcers or other abnormalities. The patient has a known history of lymphoma as well as mesenteric stenosis. Agree he is having constant pain and pain after eating, but mesenteric ischemia is still possible for possible cause of his abdominal pain. Agree with PPI therapy. We will make further recommendations after endoscopy. Thank you for allowing me to participate in his care. <ELECTRONICALLY SIGNED> By: Clarence Bello MD 11/18/17 0922 1439 192 Clarence Bello MD /nt
--- NOTE | ~2017-11-08 | S ---
[facility] [place] [address] SURGICAL PATH RPT PROCEDURE Name: NIKHIL SHAY Room #: 410-P [facility] IN M.R.#: [id number] Admission: 11/09/17 Date of : 42 Discharge: 11/11/17 Report #: [id number] Path Case #: [id number] PATHOLOGY REPORT COLLECTION DATE: 11/09/2017 RECEIVED DATE: 11/11/2017 SUBMITTING PHYS: Dr. Clarence Bello OTHER PHYS: Dr. Keith Gonsalez SPECIMEN(S) RECEIVED: A.Bx of duodenal nodule B.Bx of gatritis * * * * * * * * * * * * FINAL DIAGNOSIS: A. Bx of duodenal nodule: - Tubular adenoma. - Negative for high grade dysplasia. B. Bx of gatritis: - Mild reactive gastropathy. - An H. pylori immunostain is negative (Block B1; appropriately reactive control). PATHOLOGIST: Louie Judge M.D. REPORT ELECTRONICALLY SIGNED BY: Louie Judge M.D. DATE/TIME: 11/12/2017 11:24 * * * * * * * * * * * * GROSS PATHOLOGY: A. Received in formalin labeled "Nikhil Shay Maurice, BX of duodenal nodule" and consists of 2 allan mucosal biopsies each averaging 0.3 cm. There are entirely submitted as A1. B. Received in formalin labeled "Nikhil Shay Maurice, BX of gastritis" and consists of 3 allan mucosal biopsies each averaging 0.3 cm. They are entirely submitted as B1. (JOVANY; 11/11/2017) CLINICAL HISTORY: Abdominal pain, CT INITIAL CPT CODE(S): A; 67499 B; 88020, 18350 [facility] at [address] [address] SURGICAL PATH RPT PROCEDURE Name: NIKHIL SHAY Room #: 410-P [facility] IN M.R.#: [id number] Admission: 11/09/17 Date of : 41 Discharge: 11/11/17 Report #: [id number] Path Case #: [id number] [address], [place] [address] Technical services performed by [facility] at [address] [place] [address], [facility] [address] [address]. [place] [address] PHONE: [phone] DIRECTOR: Migel Huggins M.D. * * * END OF REPORT * * *
--- NOTE | ~2017-11-08 | EKG ---
[place] [address] [facility] [place] [address] ELECTROCARDIOGRAM REPORT Name: ARELIS SHAY KEN Room #: 410-P ADM IN M.R.#: [id number] Admission: 11/09/17 Attend Phys: Keith Anderson DO Discharge: Date of : 41 Report #: [id number] THIS REPORT FOR: //name// [facility] ED Test Date: 2017-11-08 Test Time: 22:50:18 Pat Name: ARELIS SHAY Department: Room: 410 Gender: M Helpdesk Specialist: MZOOK : 1940 Requested By: Ashish Carter Order Number: [id number] MD: Jonah Vargas Measurements Intervals [place] Rate: 84 P: 52 FL: 174 QRS: 44 QRSD: 84 T: 43 QT: 354 QTc: 419 Interpretive Statements Sinus rhythm Atrial premature complex Borderline low voltage, extremity leads Compared to ECG 05/28/2017 08:44:54 Atrial premature complex(es) now present Electronically Signed On 11-09-2017 13:06:44 CHICLE GR[employer]EDER by Jonah Vargas [email or web address] <ELECTRONICALLY SIGNED> By: Jonah Vargas MD, [facility] 11/09/17 1306 2250 2250 Jonah Vargas MD, [facility] /EPI
--- NOTE | ~2017-11-08 | HC ---
[facility] [place] [address] CONSULTATION Name: ARELIS SHAY Room #: 410-[facility] IN M.R.#: [id number] Admission: 11/09/17 Attend Phys: Andrews Riley MD Discharge: 11/11/17 Date of : 42 Report #: [id number] THIS REPORT FOR: //name// CC: Clarence Bello MD [facility] Natacha Cordon MD REQUESTING PHYSICIAN: Dr. Andrews Riley. REASON FOR CONSULTATION: History of lymphoma. 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 He began Treanda, rituximab chemotherapy in about May. His initial CAT scan showed some response and this recent one showed stable, if not progressive disease. He came in with worsening abdominal pain of about 3-4 days, worsening, but had actually been present maybe for several weeks. He describes it as being more midline, sort of occasionally goes to the left and into the right, and will be present in those areas. He said it is almost up underneath his lungs sometimes, does not appear to be changed by what he eats, drinks, defecation or urination, maybe feels a little bit better if he is in a position. No skin rash. No new diarrhea, no blood in his urine or stool. The pain is not necessarily a lot worse after he eats a meal if I understand correctly. He is not aware of any unusual headaches, any swallowing troubles, any breathing difficulties, any new urinary troubles, or any new arm or leg swelling. PAST MEDICAL HISTORY: Notable for diagnosis of the follicular grade 1-2 lymphoma from several years ago. He had a lymphadenopathy back in 2015. 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 Also, history of urinary retention postoperatively. Also, he has a history of bilateral cataract surgery, tonsillectomy, pilonidal cyst removal, right rotator cuff surgery in the past and neuropathy. 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 Past smoker, no significant alcohol. MEDICATIONS: At this time in the hospital currently include famotidine 20 b.i.d., pantoprazole 40 daily, Tylenol p.r.n., Zofran p.r.n., morphine p.r.n. LABORATORY DATA: Laboratory results at this admit include electrolytes that are fairly unremarkable. BUN 8, creatinine of 0.9, alkaline phosphatase and transaminases are normal. Albumin 2.8. White count on admission 5.[address] [address] CONSULTATION Name: ARELIS SHAY Room #: 410-P [facility] IN M.R.#: [id number] Admission: 11/09/17 Attend Phys: Andrews Riley MD Discharge: 11/11/17 Date of : 42 Report #: [id number] hemoglobin of 13.6, MCV of 87.7, platelets of 133, today 111. Differential nonacute, though does have slightly increased neutrophils. UA was unremarkable, did have 1+ ketones. No blood, bilirubin, nitrite, urobilinogen or leukocytes. RADIOLOGIC STUDIES: On this admission include a CT abdomen and pelvis compared to 03/15/2017. This showed the bulky soft tissue mass within the central mesentery that they thought was perhaps slightly decreased since that measurement measuring 7.6 x 5.1 cm. There was also noted to be stenosis of the celiac trunk similar in nature to prior. There was also thought to be splenomegaly at 15.8 cm. PHYSICAL EXAMINATION: GENERAL: The patient appears his stated age. VITAL SIGNS: Height is 5 feet 10 inches, 177.8 cm. Weight is 216.8 pounds or 98.3 kilograms. Blood pressure is 148/49, O2 sat 98%, respirations 20, pulse 73, afebrile at 98.2. MOOD: He is alert, pleasant and conversant. NEUROLOGIC: Face is symmetrical, moving all extremities. LUNGS: Clear with symmetric, unlabored expansion. LYMPHATICS: No enlarged lymph nodes in the supraclavicular, cervical, axillary or inguinal region. ABDOMEN: Obese. No organomegaly. He does may be have some slight tenderness in the midline, but very minimal. EXTREMITIES: Without clubbing, cyanosis or edema. ASSESSMENT AND PLAN: 1. Follicular grade 1-2 lymphoma. As before, I would like the patient to see Dr. White at some point to consider surgery to determine what specific subtype of lymphoma we are dealing with. 2. Abdominal pain. I think there is a strong possibility that this may be related to the patient's Colestid. It sounds like the small ulceration seen by Dr. Bello is not likely to have caused this pain especially up to the sides and also there is stenosis of the artery, sounds like there are other collaterals, so this would be unlikely to be causing difficulties. 3. Urinary difficulties, use Rapaflo if needed at discharge. 4. Followup, he will need to see Dr. White at some point. 5. History of diarrhea with Staph, Colestid at this point. Also, the note that during this patient's upper endoscopy with biopsies, he was found to have a small duodenal erosion/ nodule, biopsies were obtained and pending. <ELECTRONICALLY SIGNED> By: Peter Chambers MD 11/11/17 1910 [id number] 1131 Peter Chambers MD /nt
--- NOTE | ~2017-11-08 | P ---
[facility] [place] [address] PROCEDURE REPORT Name: ARELIS SHAY Room #: 410-P [facility] IN M.R.#: [id number] Admission: 11/09/17 Attend Phys: Andrews Riley MD Discharge: 11/11/17 Date of : 42 Report #: [id number] THIS REPORT FOR: //name// CC: Keith Anderson DO [facility] Peter Cordon MD DATE OF SERVICE: 11/10/2017 PROCEDURE PERFORMED: Upper endoscopy with biopsies. HISTORY OF PRESENT ILLNESS: The patient is a 77-year-old male with a history of mid epigastric abdominal pain. He has a history of lymphoma. He also has a history of mesenteric stenosis. Pain is fairly constant and has been worse over the last week. CT showing possible duodenal abnormality. Plan is for upper endoscopy today. DESCRIPTION OF PROCEDURE: The risks and benefits of the procedure were explained to the patient. Those risks including but not limited to bleeding, perforation, the risk of sedation. He understood these risks and gave informed consent. Sedation was given using propofol per Anesthesia. Next, using a standard CarJump upper endoscope, the scope was placed in the patient's mouth and advanced under direct vision through the esophagus, stomach and into the second portion of the duodenum. The larynx was normal in appearance. The esophagus was normal throughout. The GE junction was normal. Overall, the gastric mucosa was normal. The pylorus was normal and patent. Duodenal bulb was normal. In the second portion of the duodenum, a small erosion/nodule was noted. This was approximately 3-4 mm in size. Biopsies were obtained. No other abnormalities were noted throughout the duodenum. The scope was then brought back up into the patient's stomach and biopsies were obtained of the gastric mucosa to rule out the possibility of H. pylori. The scope was then withdrawn and the procedure terminated. The patient tolerated the procedure well. IMPRESSION: 1. Small duodenal erosion/nodule. Biopsies obtained. 2. Otherwise, normal upper endoscopy. RECOMMENDATIONS: 1. Await biopsy results. 2. Continue PPI therapy. 3. Consider mesenteric stenosis as potential etiology of the patient's abdominal pain. [facility] [address] [place] [address] PROCEDURE REPORT Name: ARELIS SHAY Room #: 410-P [facility] IN M.R.#: [id number] Admission: 11/09/17 Attend Phys: Andrews Riley MD Discharge: 11/11/17 Date of : 42 Report #: [id number] Thank you for allowing me to participate in his care. <ELECTRONICALLY SIGNED> By: Clarence Bello MD 11/18/17 0922 [id number] [id number] Clarence Bello MD /nt
[~2017-11-08 21:36] MED LIST changes: +ALLOPURINOL 30300 M2 PO; +CEFDINIR300 MG PO; +DOVONEX60 GM TOP; +LIDODERM1 EACH TRANSDERM; +ONDANSETRON ODT8 MG PO; +PREDNISONE 20 M20 MG PO; +RAPAFLO8 MG PO
[2017-11-08 21:39] VITALS: BP 167/64
[2017-11-08] MEDS ORDERED: PROBIOTIC1 EAC1 PO (21:56)
[2017-11-08] MEDS ORDERED: FLOMAX0.4 MG PO (21:56)
[2017-11-08] MEDS ORDERED: COLESTIPOL HCL1 G1 PO (21:57)
[2017-11-08 22:35] LABS: ABSOLUTE NEUTROPHILS 4.2 thou/uL (1.4-8.2); BASOPHILS 0.3 % (0.0-2.0); EOSINOPHILS 1.6 % (0.0-3.0); HEMATOCRIT 39.6 % (42.0-52.0); HEMOGLOBIN 13.6 gm/dL (14.0-18.0); LYMPHOCYTES 14.3 % (24.0-44.0); MCH 30.2 pg (26.0-34.0); MCHC 34.5 g/dL (28.0-37.0); MCV 87.7 fL (80.0-100.0); MONOCYTES 11.2 % (1.0-8.0); PLATELET COUNT 133 thou/uL (150-400); POLYS 72.6 % (36.0-66.0); RBC 4.51 mil/uL (4.50-6.00); RDW 15.7 % (10.5-14.5); WBC 5.8 thou/uL (4.0-11.0)
[2017-11-08 22:38] LABS: ANION GAP 8 mmol/L (7-16); BUN 14 mg/dL (7-18); CALCIUM 9.5 mg/dL (8.5-10.1); CHLORIDE 101 mmol/L (98-107); CO2 26 mmol/L (21-32); CREATININE 1.1 mg/dL (0.7-1.3); GLUCOSE 139 mg/dL (74-106); POTASSIUM 3.8 mmol/L (3.5-5.1); SODIUM 135 mmol/L (136-145)
[2017-11-08 22:46] LABS: ALBUMIN 3.4 g/dL (3.4-5.0); LIPASE 165 U/L (73-393); SGOT 29 U/L (15-37); SGPT 25 U/L (30-65); TOTAL BILIRUBIN 0.3 mg/dL (<0.1-1.0); TOTAL PROTEIN 6.7 g/dL (6.4-8.2)
[2017-11-08 22:59] LABS: TROPONIN-I < 0.04 ng/mL (<0.06)
[2017-11-09 01:40] VITALS: BP 152/68
[2017-11-09 02:05] VITALS: BP 156/65
[2017-11-09 04:00] VITALS: BP 158/66
[2017-11-09 07:09] VITALS: BP 159/78
[2017-11-09 15:51] VITALS: BP 165/63
[2017-11-09 19:35] VITALS: BP 157/62
[2017-11-10 03:47] LABS: HEMATOCRIT 36.8 % (42.0-52.0); HEMOGLOBIN 12.5 gm/dL (14.0-18.0); MCH 30.1 pg (26.0-34.0); MCHC 34.1 g/dL (28.0-37.0); MCV 88.2 fL (80.0-100.0); RBC 4.17 mil/uL (4.50-6.00); RDW 15.6 % (10.5-14.5); WBC 3.9 thou/uL (4.0-11.0)
[2017-11-10 03:57] LABS: ALBUMIN 2.8 g/dL (3.4-5.0); CALCIUM 8.8 mg/dL (8.5-10.1); CREATININE 0.9 mg/dL (0.7-1.3); MAGNESIUM 1.5 mg/dL (1.8-2.4); POTASSIUM 4.2 mmol/L (3.5-5.1); TOTAL BILIRUBIN 0.4 mg/dL (<0.1-1.0); TOTAL PROTEIN 5.6 g/dL (6.4-8.2)
[2017-11-10 04:00] VITALS: BP 162/76
[2017-11-10 08:07] VITALS: BP 171/69
[2017-11-10 13:30] LABS: URINE BILIRUBIN NEGATIVE (Negative); URINE BLOOD NEGATIVE (Negative); URINE CLARITY CLEAR; URINE COLOR YELLOW; URINE GLUCOSE-RANDOM* NEGATIVE (Negative); URINE KETONES 1+ (Negative); URINE LEUKOCYTES-REFLEX NEGATIVE (Negative); URINE NITRITE-REFLEX NEGATIVE (Negative); URINE PROTEIN (DIPSTICK) NEGATIVE (Negative); URINE UROBILINOGEN 0.2 E.U./dl (0.2-1.0)
[2017-11-10 16:57] VITALS: BP 164/69
[2017-11-10 19:41] VITALS: BP 161/66
[2017-11-11 04:00] VITALS: BP 148/49
[2017-11-11 04:30] LABS: ABSOLUTE NEUTROPHILS 2.9 thou/uL (1.4-8.2); BASOPHILS 0.4 % (0.0-2.0); EOSINOPHILS 1.7 % (0.0-3.0); HEMATOCRIT 36.7 % (42.0-52.0); HEMOGLOBIN 12.7 gm/dL (14.0-18.0); MCH 30.3 pg (26.0-34.0); MCHC 34.6 g/dL (28.0-37.0); MCV 87.6 fL (80.0-100.0); MONOCYTES 11.9 % (1.0-8.0); PLATELET COUNT 111 thou/uL (150-400); RBC 4.19 mil/uL (4.50-6.00)
[2017-11-11 04:46] LABS: CALCIUM 9.1 mg/dL (8.5-10.1); CREATININE 0.9 mg/dL (0.7-1.3); POTASSIUM 3.9 mmol/L (3.5-5.1)
[2017-11-11 09:17] VITALS: BP 156/55
[2017-11-11] MEDS ORDERED: KAOPECTATE262 MG/15 PO (17:22)
[2017-11-11] MEDS ORDERED: NEURONTIN300 MG PO (17:22)
[2017-11-11] MEDS ORDERED: LOPERAMIDE 2 MG2 M1 PO (17:22)
[2017-11-11] MEDS ORDERED: PEPCID20 MG PO (17:22)
[2017-11-11 17:29] VITALS: BP 156/55
[2017-11-13] MEDS ORDERED: PEPCID20 MG PO (08:47)
[2017-11-13] MEDS ORDERED: KAOPECTATE262 MG/15 PO (08:47)
[2017-11-13] MEDS ORDERED: LOPERAMIDE 2 MG2 M1 PO (08:48)
[2017-11-13] MEDS ORDERED: NEURONTIN600 MG PO (08:48)
[2017-12-02] MEDS ORDERED: NEURONTIN 300300 M1 PO (09:50)
[2017-12-02] MEDS ORDERED: PREDNISONE 20 M20 MG PO (09:52)
[2017-12-02] MEDS ORDERED: ALLOPURINOL 30300 M1 PO (09:52)
[2018-01-20] MEDS ORDERED: COLESTIPOL HCL1 G1 PO (14:12)
[2018-01-20] MEDS ORDERED: LOMOTIL TABLET1 EACH PO (14:13)
[2018-01-20] MEDS ORDERED: PREDNISONE 20 M20 MG PO (14:14)
[2018-01-20] MEDS ORDERED: [UNRECOGNIZED DRUG - OTHER] IV (14:34)
== END 2017-11-11 18:05 | disposition home or self-care (01) | DRG 383 ==
LOC: ER 21:36 → 4N 11-09 01:10 → EROBS 11-09 01:10 → 4N 11-09 01:41
PROVIDERS: Emergency Medicine; Hospitalist
PROC: 0DB98ZX Excision of Duodenum, Via Natural or Artificial Opening Endoscopic, Diagnostic (ICD-10-PCS; principal; 2017-11-10)
PROC: 0DB68ZX Excision of Stomach, Via Natural or Artificial Opening Endoscopic, Diagnostic (ICD-10-PCS; principal; 2017-11-10)
DX: K26.9 Duodenal ulcer, unspecified as acute or chronic, without hemorrhage or perforation (principal); E43 Unspecified severe protein-calorie malnutrition; K55.1 Chronic vascular disorders of intestine; I77.4 Celiac artery compression syndrome; C82.90 Follicular lymphoma, unspecified, unspecified site; I10 Essential (primary) hypertension; G62.9 Polyneuropathy, unspecified; M10.9 Gout, unspecified; R59.9 Enlarged lymph nodes, unspecified; N40.0 Benign prostatic hyperplasia without lower urinary tract symptoms; E86.0 Dehydration; Z90.49 Acquired absence of other specified parts of digestive tract; Z98.42 Cataract extraction status, left eye; Z98.41 Cataract extraction status, right eye; Z79.899 Other long term (current) drug therapy; Z87.891 Personal history of nicotine dependence; Z28.21 Immunization not carried out because of patient refusal
CPT/HCPCS: 10091; 62110; 62900; 70005

== ENCOUNTER 2017-11-18 05:22 | Day surgery (SDC) | payer OTHER ==
[~2017-11-18] VITALS: Ht 177.8 cm; Wt 93.0 kg
--- NOTE | ~2017-11-18 | O ---
[facility] [place] [address] OPERATIVE REPORT Name: ARELIS SHAY Room #: 150-1 [facility] M..#: [id number] Admission: 11/18/17 Attend Phys: Natacha White MD, Discharge: Date of : 42 Report #: [id number] THIS REPORT FOR: //name// CC: Natacha Gonsalez DATE OF SERVICE: 11/18/2017 PREOPERATIVE DIAGNOSES: 1. Biopsy-proven lymphoma, now medically recalcitrant to chemotherapy regimen. 2. Abdominal pain. 3. Abdominal distention. POSTOPERATIVE DIAGNOSES: 1. Biopsy-proven lymphoma, now medically recalcitrant to chemotherapy regimen. 2. Abdominal pain. 3. Abdominal distention. 4. Large amount of malignant appearing ascites. PROCEDURES PERFORMED: 1. Laparoscopic excision of a mesenteric/omental mass measuring 11 x 6 cm in dimension. 2. Laparoscopic aspiration of 1 liter of malignant appearing ascites. SURGEON: Natacha White MD [employer] INFORMATION CLERK: Surekha Miller MS4. ANESTHESIA: General endotracheal anesthesia. ESTIMATED BLOOD LOSS: Minimal (less than 5 mL). COMPLICATIONS: None appreciated. SPECIMENS: Excised mass to pathology as well as fluid for flow cytometry, all specimens fresh for lymphoma protocol. INDICATIONS: The patient is a 77-year-old male with a past history of progressive enlargement of the abdominal domain with discomfort and CT scan showing mesenteric masses. The patient underwent biopsy of these mesenteric masses, initially from a percutaneous route showing inconclusive findings and we then proceeded to the operating room for a laparoscopic biopsy. At that time, the patient's mass was firm and in the root of the mesentery and I was only able to gain three separate chunks that were approximately 1 cm in diameter; however, it was enough to prove lymphoma and the patient has been on a chemotherapy regimen for the past several months. Unfortunately, the patient has had [facility] [address] [place] [address] OPERATIVE REPORT Name: ARELIS SHAY Room #: 150-1 [facility].#: [id number] Admission: 11/18/17 Attend Phys: Natacha White MD, Discharge: Date of : 42 Report #: [id number] progressive worsening in his disease with worsening abdominal distention and pain and CT scan showing enlarging masses and as his tumors are no longer responsive to his chemotherapy regimen, a request was made by oncology to perform repeat tissue harvesting for diagnosis to hopefully direct chemotherapy regimen further. PROCEDURE: After explaining the risks, benefits, alternatives of the procedure with the patient in detail in the preoperative holding area and obtaining written consent, the patient was brought to the operating room and placed supine on the operating room table. After conducting a thorough timeout procedure, verifying correct patient and procedure, the patient was given general endotracheal anesthesia. Once adequate anesthesia was obtained, his SCDs were hooked up to pneumatic compression device and he was given a preoperative dose of antibiotics in line with the SCIP protocol. The patient's abdomen was prepped and draped in standard surgical sterile fashion. 5 mL of 0.5% Marcaine with epinephrine were used to anesthetize the skin in the left upper quadrant midclavicular line and subcostal location. A #11 bladed scalpel was used to create a small skin gregg at this location. A 5-mm Visiport was placed over 0-degree 5-mm laparoscope and was introduced through this incision site. Once intra-abdominal placement was verified visually, the obturator for the trocar and laparoscope were both removed and the abdomen was insufflated to 15 mmHg using carbon dioxide gas. The laparoscope was changed to a 5-mm 30-degree laparoscope and was reintroduced through this trocar. The entire abdomen was evaluated to ensure no injury upon entry. I now placed 2 additional trocars in the left flank. A 12-mm port was placed lateral to the umbilicus at the anterior axillary line and an additional 5-mm port was placed in left lower quadrant. Both additional trocars were placed under direct vision after anesthetizing the skin at each location with 5 mL of 0.5% Marcaine with epinephrine and I had created appropriately sized skin nicks using a #15 bladed scalpel. Laparoscope was placed back to the 12-mm port and the intra-abdominal domain was evaluated. There was a large amount of murky malignant appearing ascites throughout the abdominal domain. [facility] chief executive officer device with a Lukens trap was now used to aspirate this fluid and it was sent fresh for flow cytometry for lymphoma protocol. I proceeded to evacuate all of the fluid that was encountered, which was approximately 1 liter for symptomatic relief of his abdominal distention. The patient had numerous masses throughout the omentum and mesentery with the largest being at the root of the mesentery where the omentum was plastered down on top of it and I was able to excise this in full and it ultimately measured 11 x 6 cm in dimension and hemostasis was assured with Harmonic scalpel in performing the excision. We stayed well away from bowel at all times and it shelled out nicely. There were numerous other masses seen throughout the abdominal domain and since this was an amalgamation of both the mesenteric and omental masses, I felt it was an adequate representation and intraoperative consultation with pathology confirmed enough tissue specimen likely to create appropriate diagnosis. The additional masses were intimately complex with the bowel wall and would necessitate bowel resections in order to [facility] [address] [place] [address] OPERATIVE REPORT Name: ARELIS SHAY Room #: 150-1 [facility]..#: [id number] Admission: 11/18/17 Attend Phys: Natacha White MD, Discharge: Date of : 42 Report #: [id number] harvest. As such, once resected, the laparoscope was placed back in the left upper quadrant trocar and the EndoCatch bag was placed through the 12-mm port. I proceeded to place the specimen into the EndoCatch bag and withdrew this out of the abdomen with some difficulty due to the sheer size of the firm mass. Once this was delivered through the abdominal wall inside the bag, I was passed off the field as specimen fresh for lymphoma protocol. I then closed the 12-mm fascial incision using 0 PDS suture on the Arun-Eusebia suture passer device and tied it down under direct vision to ensure I did not catch a loop of bowel or omentum in the suture repair. Mayur was placed over the resection area to maintain long-term hemostasis. One final evaluation of the intra-abdominal domain showed no further evidence of pathology. The abdomen was fully desufflated, all remaining trocars are removed under direct vision. A 4-0 Monocryl was used in a standard subcuticular fashion for all skin incisions and Dermabond glue was applied to all skin wounds. At the end of the procedure, all instrument, needle, and sponge counts were correct. The patient tolerated the procedure without incident, was awakened in the operating room and transitioned to the recovery room in stable condition with no apparent complications. <ELECTRONICALLY SIGNED> By: Natacha White MD, FACS 11/18/17 1517 1042 1126 Natacha White MD, FACS /nt
--- NOTE | ~2017-11-18 | CNG ---
[facility] [place] [address] CYTO-NONGYN REPORT PROCEDURE Name: NIKHIL SHAY [facility] #: [facility] [id number] Admission: 11/18/17 Date of : 42 Discharge: 11/18/17 Report #: [id number] Path Case #: [id number] CYTOPATHOLOGY REPORT COLLECTION DATE: 11/18/2017 RECEIVED DATE: 11/18/2017 SUBMITTING PHYS: Dr. Natacha White OTHER PHYS: Dr. Kemi Gonsalez CLINICAL HISTORY: Mesenteric mass. See also [id number]. SPECIMEN(S) RECEIVED: A.Peritoneal fluid * * * * * * * * * * * * FINAL DIAGNOSIS: Peritoneal fluid: - LYMPHOCYTOSIS, HISTORY OF MESENTERIC FOLLICULAR LYMPHOMA. (SEE COMMENT) COMMENT: The concurrent excisional biopsy of the mesenteric mass ([id number]) shows residual / recurrent follicular lymphoma. The findings are similar to those previously reported in the peritoneal fluid ([id number]). Correlation with clinical history, radiographic findings, and additional laboratory data is recommended. (CLW:; 11/20/2017) PATHOLOGIST: Mel Diaz M.D. REPORT ELECTRONICALLY SIGNED BY: Mel Diaz M.D. DATE/TIME: 11/20/2017 14:44 * * * * * * * * * * * * GROSS PATHOLOGY: Peritoneal fluid: The specimen is submitted unfixed, labeled "Nikhil Shay". Received by the Cytology Department is 30 mL of cloudy yellow fluid. One ThinPrep slide and a formalin fixed cell block were prepared. (mm 11.18.2017) ARNP(S): NAOMY Foster[facility] INITIAL CPT CODE(S): A; 18815, 86383 Professional services performed by [facility] at [facility] [address] [place] [address] Technical services performed by [facility] at [address] [place] [address], [address], [place] [address]. [facility] [address] [place] [address] CYTO-NONGYN REPORT PROCEDURE Name: NIKHIL SHAY Room #: DEP [facility] M.Jose R.#: [id number] Admission: 11/18/17 Date of : 42 Discharge: 11/18/17 Report #: [id number] Path Case #: [id number] [facility] [address] [place] [address], [facility] [address] [place] [address] PHONE: [phone] DIRECTOR: Migel Huggins M.D. * * * END OF REPORT * * *
--- NOTE | ~2017-11-18 | S ---
[facility] [address] [place] [address] SURGICAL PATH RPT PROCEDURE Name: NIKHIL SHAY Room #: DEP [facility]..#: [id number] Admission: 11/18/17 Date of : 42 Discharge: 11/18/17 Report #: [id number] Path Case #: [id number] PATHOLOGY REPORT COLLECTION DATE: 11/18/2017 RECEIVED DATE: 11/18/2017 SUBMITTING PHYS: Dr. Natacha White OTHER PHYS: Dr. Kemi Gonsalez ADDENDUM REPORT (Order Date: 11/22/2017 16:07) ADDENDUM COMMENT: This addendum is to document the additional properly controlled immunohistochemical stain that was performed. CD5 (block A3): highlights the T cells, no B cell co-expression The final diagnosis remains unchanged. (CLW:; 11/22/2017) Professional services performed by [facility] at [facility] [address] , [place] [address] Technical services performed by [facility] at [address] [place] [address], [address] [place] [address]. ELECTRONICALLY SIGNED BY: Mel Diaz M.D. DATE/TIME:11/22/2017 22:03 SPECIMEN(S) RECEIVED: A.Mesenteric excisional bx * * * * * * * * * * * * FINAL DIAGNOSIS: "Mesenteric excisional BX", excisional biopsy: - Follicular lymphoma, residual / recurrent. (See comment) [facility]CER STAGING REPORT SPECIMEN Specimen: Other: mesenteric mass Procedure: Biopsy Tumor Site: Other tissue(s) or organ(s): mesenteric mass TUMOR Histologic Type (Based on the 2008 WHO Classification): Mature B-Cell Neoplasms Follicular lymphoma SPECIAL STUDIES [address] [address] SURGICAL PATH RPT PROCEDURE Name: NIKHIL SHAY Room #: DEP [facility].#: [id number] Admission: 11/18/17 Date of : 42 Discharge: 11/18/17 Report #: [id number] Path Case #: [id number] Immunophenotyping (Flow Cytometry and / or Immunohistochemistry): Performed, see separate report: flow cytometry [employer] [id number] COMMENT: Sections show fibroadipose connective tissue and obliterated lymph node with extensive involvement by the patient's previously diagnosed lymphoma. The atypical lymphocytes are infiltrating through a dense fibrocollagenized stroma. The lymphocytes are small to medium sized with round and focally angulated nuclear contours, condense chromatin and scant to moderate cytoplasm. Significant spindled cell morphology is noted. Scattered mitotic cells are seen; however, an extremely high mitotic rate and abundant single cell necrosis are not identified. Focal geographic necrosis is present. Rare multinucleated tumor giant cells are also seen. To confirm the flow cytometry findings and to identify cells in a tissue architectural context, properly controlled immunohistochemical stains are performed. Block A3: PAX5 - Stains the neoplastic B-cells in a predominantly diffuse pattern CD3 - Stains rare admixed T-cells CD10 - B-cell coexpression BCL6 - B-cell coexpression BCL2 - B-cell coexpression CD23 - B-cell coexpression MUM1 - Stains approximately 30% of atypical lymphocytes Cyclin D1 - Essentially nonreactive Ki-67 - An overall proliferative index of approximately 30-40% with patchy areas showing 10% proliferation and patchy areas showing 50% proliferation. Flow cytometric immunophenotypic analysis was performed at [facility]. The diagnosis is "B-cell non-Hodgkin lymphoma". There are 93.4% lymphocytes. Of the lymphocytes, there are 16% T-cells with a CD4/CD8 ratio of 1 and 80% B-cells. The monoclonal B cell phenotype is expressing CD19, CD20, CD5 (subset), CD10, CD11c, CD23 (subset), and kappa light chains. [place] monotypic B-cells expressing CD5, CD10, CD11c, and CD23 are detected consistent with B-cell lymphoma. Please see separate flow cytometry report from [facility] ([id number]). Overall, the diagnosis is residual / recurrent follicular lymphoma. The patient has a history of "obliterated lymph node with extensive involvement by follicular lymphoma, low grade, grade 1-2 of 3, follicular and diffuse pattern, with background fibrocollagenized stroma" from a previous mesenteric biopsy ([id number]). While the current case has overall lower grade (grade 2 of 3) morphology, the [facility] [address] [place] [address] SURGICAL PATH RPT PROCEDURE Name: NIKHIL SHAY Room #: DEP [facility]#: [id number] Admission: 11/18/17 Date of : 42 Discharge: 11/18/17 Report #: [id number] Path Case #: [id number] scattered tumor giant cells, change in immunophenotype and patchy areas of increased proliferative index may represent progression and/or evolution of the disease process. Focal areas show higher grade (grade 3A of 3) morphology as well. Correlation with clinical history, radiographic findings and additional laboratory data is recommended. A sales representative supervisor slide is co-reviewed with Dr. Natali Bedoya. (CLW:astrid; 11/20/2017) PATHOLOGIST: Mel Diaz M.D. REPORT ELECTRONICALLY SIGNED BY: Mel Diaz M.D. DATE/TIME: 11/21/2017 22:19 * * * * * * * * * * * * GROSS PATHOLOGY: The specimen is received in formalin, labeled "Nikhil Shay, mesenteric excisional biopsy," and consists of a pink-allan dusky mass measuring 4.3 x 2.4 x 1.4 cm with attached yellow-orange lobulated tissue. Scattered within the attached lobulated tissue are multiple additional pink-allan masses/nodules measuring up to 1.8 cm in greatest dimension. The entire specimen is inked black. Sectioning the largest mass reveals pink-allan cut surfaces with focal areas of hemorrhage. Sectioning the remainder of the specimen reveals yellow lobulated cut surfaces and multiple additional masses/nodules. The cut surfaces of the scattered masses/nodules are pink-allan and focally hemorrhagic. A small portion of the tissue was submitted for flow cytometry at [facility]. Cloud Operations Engineer sections are submitted as follows: A1-A5: Largest mass A6-A8: Additional masses and lobulated tissue (SDY; 11/18/2017) CLINICAL HISTORY: Mesenteric mass INITIAL CPT CODE(S): A; 17341, 03923, 16771, 68621, 65653, 84485, 86487, 24167, 01503, 49898, 27130 Professional services performed by [facility] at [facility] [address], [place] [address] Technical services performed by [facility] at [address] [place] [address]. [facility] [address] [place] [address] SURGICAL PATH RPT PROCEDURE Name: NIKHIL SHAY Room #: DEP [facility] ElliR.#: [id number] Admission: 11/18/17 Date of : 42 Discharge: 11/18/17 Report #: [id number] Path Case #: [id number] [facility] [address] [place] [address] PHONE: [phone] DIRECTOR: Migel Huggins M.D. * * * END OF REPORT * * *
[~2017-11-18 05:22] MED LIST changes: +COLESTIPOL HCL1 G1 PO; +FLOMAX0.4 MG PO; +KAOPECTATE262 MG/15 PO; +LOPERAMIDE 2 MG2 M1 PO; +NEURONTIN600 MG PO; +PEPCID20 MG PO; +PROBIOTIC1 EAC1 PO
[2017-11-18 07:33] VITALS: BP 130/78
[2017-11-18] MEDS ORDERED: PERCOCET PO (08:44)
[2017-11-18] MEDS ORDERED: ZOFRAN ODT4 MG DISSOLVE (08:44)
[2017-11-18 08:54] VITALS: BP 130/78
[2017-12-02] MEDS ORDERED: NEURONTIN 300300 M1 PO (09:50)
[2017-12-02] MEDS ORDERED: PREDNISONE 20 M20 MG PO (09:52)
[2017-12-02] MEDS ORDERED: ALLOPURINOL 30300 M1 PO (09:52)
[2018-01-20] MEDS ORDERED: COLESTIPOL HCL1 G1 PO (14:12)
[2018-01-20] MEDS ORDERED: LOMOTIL TABLET1 EACH PO (14:13)
[2018-01-20] MEDS ORDERED: PREDNISONE 20 M20 MG PO (14:14)
[2018-01-20] MEDS ORDERED: [UNRECOGNIZED DRUG - OTHER] IV (14:34)
== END 2017-11-18 11:00 | disposition home or self-care (01) ==
LOC: TBA 05:22 → OR 05:22
DX: C82.16 Follicular lymphoma grade II, intrapelvic lymph nodes (principal); R18.0 Malignant ascites; R10.9 Unspecified abdominal pain; R14.0 Abdominal distension (gaseous); Z87.891 Personal history of nicotine dependence; Z98.41 Cataract extraction status, right eye; Z98.42 Cataract extraction status, left eye; Z79.82 Long term (current) use of aspirin; Z79.899 Other long term (current) drug therapy; Z79.891 Long term (current) use of opiate analgesic
CPT/HCPCS: 50010; 50101; 50249; 50386; 50455; 50555; 50558; 50900; 50962; 51489; 51975; 52265; 52287; 53307; 54022; 54118; 56462; 56525; 56526; 57092; 62110; 62900; 70005

== ENCOUNTER → 2018-01-23 | Outpatient (CLI) | payer OTHER ==
[~2018-01-23] VITALS: Ht 177.8 cm; Wt 85.3 kg
[~2018-01-23] MED LIST changes: +ALLOPURINOL 30300 M1 PO; +LOMOTIL TABLET1 EACH PO; +NEURONTIN 300300 M1 PO; +PERCOCET PO; +ZOFRAN ODT4 MG DISSOLVE; +[UNRECOGNIZED DRUG - OTHER] IV
--- NOTE | ~2018-01-23 | P ---
[facility] [place] [address] PROCEDURE REPORT Name: ARELIS SHAY Room #: REG [facility]#: [id number] Admission: 01/23/18 Attend Phys: Gee Azevedo MD Discharge: Date of : 41 Report #: [id number] THIS REPORT FOR: //name// CC: Gee Chambers MD OUTPATIENT COLONOSCOPY REPORT BRIEF HISTORY: The patient is a 77-year-old male with a history of a follicular lymphoma, currently undergoing chemotherapy. He has had some problems in the past with diarrhea, which worsened several months ago. He was treated empirically with colestipol and had significant improvement of diarrhea. However, in the past several months, colestipol is no longer effective. He has also failed on Imodium and Lomotil. Stool studies were nondiagnostic. In spite of empiric treatment, he continues to have worsening problems with diarrhea. PREOPERATIVE DIAGNOSIS: Modification in bowel habits with severe diarrhea, refractory to empiric therapy. POSTOPERATIVE DIAGNOSIS: Modification in bowel habits with severe diarrhea, refractory to empiric therapy. MEDICATIONS: Deep sedation with propofol per anesthesia. SPECIMENS: 1. Random biopsies of proximal colon. 2. Random biopsies of distal colon and rectum. ESTIMATED BLOOD LOSS: 3 mL. PROCEDURE: Colonoscopy to cecum and terminal ileum with biopsy. FINDINGS: Prior to propofol sedation, the procedure of colonoscopy was discussed with the patient as well as potential risks and its complications. He indicates he understands and desires to proceed. DESCRIPTION OF PROCEDURE: With the patient in the left lateral decubitus position, digital examination was completed, which revealed no abnormalities. Subsequently, the Olympus video colonoscope was introduced in the rectum and advanced under direct vision to the cecum. Done with minimal difficulty. The cecum was identified by the ileocecal valve and the appendiceal orifice. I was able to visualize the distal segment of the terminal ileum, which was noted to be unremarkable. At that point, the scope was slowly withdrawn and careful circumferential views were obtained including retroflexing the scope in the ascending colon. Upon slow withdrawal of the scope, the prep was good. [facility] [address] [place] [address] PROCEDURE REPORT Name: ARELIS SHAY [facility] [id number] Admission: 01/23/18 Attend Phys: Gee Azevedo MD Discharge: Date of : 41 Report #: [id number] mucosa was inspected and noted to be within normal limits. No inflammatory neoplastic lesions were seen. In view of his diarrhea, we obtained multiple biopsies throughout the colon to evaluate for microscopic inflammatory changes. Again, no mucosal abnormalities were seen today. The scope was withdrawn through the entire colon. No abnormalities were seen. Upon retroflexing in the rectum, no abnormalities were seen. Scope was withdrawn and the patient tolerated the procedure well. CONDITION OF THE PATIENT UPON DISCHARGE: Following the procedure, the patient drowsy, arousable, conversant and will be discharged home when fully ambulatory. INSTRUCTIONS TO THE PATIENT AND FAMILY AT THE TIME OF DISCHARGE: The patient with persistent moderately severe diarrhea, with abnormal endoscopic examination of the colon. We will follow up on biopsies obtained today. We will have him continue his Lomotil and colestipol and also treat empirically with metronidazole, awaiting biopsy reports. Another consideration will be use tincture of opium. We will continue to make recommendations with regards to his diarrhea. He will otherwise follow up with Dr. Kemi Gonsalez and Dr. Peter Chambers. <ELECTRONICALLY SIGNED> By: Gee Azevedo MD 01/23/18 1155 0930 1030 Gee Azevedo MD /nt
== END | disposition home or self-care (01) ==
LOC: GI 07:47
DX: K52.9 Noninfective gastroenteritis and colitis, unspecified (principal); I10 Essential (primary) hypertension; J43.9 Emphysema, unspecified; C82.90 Follicular lymphoma, unspecified, unspecified site; Z98.890 Other specified postprocedural states; Z98.41 Cataract extraction status, right eye; Z87.891 Personal history of nicotine dependence; Z98.42 Cataract extraction status, left eye; Z87.19 Personal history of other diseases of the digestive system; Z79.82 Long term (current) use of aspirin; Z79.899 Other long term (current) drug therapy
CPT/HCPCS: 62110; 62900

== ENCOUNTER → 2018-06-26 | Outpatient (CLI) | payer OTHER | LOC: CAT 11:49 | PROVIDERS: Family Medicine | DX: C18.9 Malignant neoplasm of colon, unspecified (principal); R16.1 Splenomegaly, not elsewhere classified; I70.1 Atherosclerosis of renal artery; R19.07 Generalized intra-abdominal and pelvic swelling, mass and lump; R10.9 Unspecified abdominal pain; Z85.79 Personal history of other malignant neoplasms of lymphoid, hematopoietic and related tissues ==

== ENCOUNTER 2018-08-23 20:54 | Inpatient (IN) | payer OTHER ==
[~2018-08-23] VITALS: Ht 177.8 cm; Wt 77.5 kg
--- NOTE | ~2018-08-23 | HC ---
[facility] [place] [address] CONSULTATION Name: ARELIS SHAY Room #: 242-P ADM IN M.R.#: [id number] Admission: 08/24/18 Attend Phys: Kevan Espinoza MD Discharge: Date of : 41 Report #: [id number] THIS REPORT FOR: //name// CC: Kevan Gonsalez DATE OF SERVICE: 08/26/2018 CONSULTATION: Infectious diseases. HISTORY OF PRESENT ILLNESS: The patient is a 78-year-old white male, admitted to [facility] 08/24 because of overwhelming weakness to the point of falling. The patient has lymphoma, which has broken through after his last chemotherapy. The patient also noted fevers, chills, and sweats. He was noted to have low blood pressure. The patient presents to the hospital where his blood cultures are growing Gram-positive cocci in chains and Gram-negative rods in 2/5 blood cultures. Infectious consultation was requested to assist with evaluation and management. PAST HISTORY: The patient was diagnosed with lymphoma in 04/2017. He has been on chemotherapy and radiation. His most recent regimen appears to be failing, as he is having increasing masses. Other diagnoses include hypertension and diverticulosis. PAST SURGICAL HISTORY: Includes a pilonidal cyst, tonsillectomy, rotator cuff repair, IV port placement and abdominal stents for arterial disease. ALLERGIES: The patient has no drug allergies. FAMILY HISTORY: Noncontributory. SOCIAL HISTORY: The patient is . He did smoke cigarettes, but quit about a year ago. No history of alcohol nor drugs. REVIEW OF SYSTEMS: GENERAL: The patient notes the fevers have resolved. He did have chills and rigors prior to coming to the hospital, but these have resolved. The patient is having some generalized discomfort and back pain. The patient denies headache, sinus congestion, sore throat, trouble swallowing. Denies any confusion or change in mental status. The patient denies cough, chest pain, shortness of breath. The patient denies nausea, vomiting, diarrhea, constipation. He does have some abdominal pain anteriorly and posteriorly. He has decreased appetite. He notes he has chronic diarrhea, which has really not changed from his usual baseline. The patient denies any urinary complaints. He has weakness in his extremities. [address] [address] CONSULTATION Name: ARELIS SHAY Room #: [address] [place] [address] [place] ..#: [id number] Admission: 08/24/18 Attend Phys: Kevan Espinoza MD Discharge: Date of : 41 Report #: [id number] PHYSICAL EXAMINATION: GENERAL: The patient appears chronically ill, uncomfortable, but not in any distress. VITAL SIGNS: Show the patient to be afebrile since coming to the hospital. SKIN: Shows no rash, lesion or exanthem. ENT: Negative. HEART: Sounds normal. LUNGS: Clear. ABDOMEN: Belly is somewhat distended, but soft and not especially tender. EXTREMITIES: Unremarkable. LABORATORY DATA: The white count is 1.9 with 74% polys, 10% bands. It was 3.7 on admission. Hemoglobin has gone from 12 to 8, platelet from 393308 to 40847. Electrolytes, BUN and creatinine unremarkable. Urinalysis is normal. CT angiogram showed atelectasis or effusions in the chest. There is necrotic central retroperitoneal mass consistent with a necrotic lymphoma mass and a number stents, which appear to be in place with no significant intra-arterial venous blockage. Microbiology laboratory reports that on 08/22, five blood cultures were drawn. Two of them are growing both Gram-positive coccus and a Gram-negative ammy. IMPRESSION: Mixed bacteremia in the setting of progressive lymphoma and chemotherapy. The presence of 2 bacteria in both positive blood culture sets suggests it is not contaminant for probably a true polymicrobial infection. This suggests an abdominal source as opposed to a port for urinary tract or lungs. The patient has been started on vancomycin and Zosyn and is showing favorable reduction in his fever. The white count, however, is going down, which is concerned. For now, I would suggest we continue the vancomycin plus Zosyn, pending final ID and sensitivity of blood cultures. We may want to follow up cultures. The patient may become granulocytopenic and may require additional precautions for that. I am not too sure what the plans are as far as further chemotherapy or radiation. For now, we will continue the patient on antibiotics and monitor his progress. Dr. Louis will return tomorrow for followup infectious disease care. By: 2316 0544 Gee Hernandez MD /nt
[2018-08-23 20:56] VITALS: BP 94/49
[2018-08-23 22:36] LABS: HEMOGLOBIN 10.3 gm/dL (14.0-18.0); MCH 30.1 pg (26.0-34.0); MCHC 34.3 g/dL (28.0-37.0); MCV 87.7 fL (80.0-100.0); PLATELET COUNT 90 thou/uL (150-400); RBC 3.43 mil/uL (4.50-6.00); RDW 14.5 % (10.5-14.5)
[2018-08-23 22:44] LABS: CALCIUM 8.8 mg/dL (8.5-10.1); CREATININE 1.5 mg/dL (0.7-1.3); POTASSIUM 3.7 mmol/L (3.5-5.1)
[2018-08-23 23:47] LABS: ABSOLUTE NEUTROPHILS 2.8 thou/uL (1.4-8.2); ATYPICAL LYMPHS 1 %; LARGE PLATELETS OCCASIONAL; PLATELET ESTIMATE DECREASED
[2018-08-24 01:02] VITALS: BP 94/49
[2018-08-24 01:50] VITALS: BP 108/52
[2018-08-24] MEDS ORDERED: OXYCODONE HCL 55 MG PO (02:14)
[2018-08-24 02:15] VITALS: BP 118/70
[2018-08-24] MEDS ORDERED: PLAVIX 75 MG TA75 M1 PO (02:15)
[2018-08-24] MEDS ORDERED: OPIUM TINC10 MG/1 M1 PO (02:17)
[2018-08-24 03:12] LABS: URINE BILIRUBIN NEGATIVE (Negative); URINE BLOOD NEGATIVE (Negative); URINE CLARITY CLEAR; URINE COLOR YELLOW; URINE GLUCOSE-RANDOM* NEGATIVE (Negative); URINE KETONES NEGATIVE (Negative); URINE LEUKOCYTES-REFLEX NEGATIVE (Negative); URINE NITRITE-REFLEX NEGATIVE (Negative); URINE PROTEIN (DIPSTICK) NEGATIVE (Negative); URINE UROBILINOGEN 0.2 E.U./dl (0.2-1.0)
--- NOTE | 2018-08-24 04:18 | NUR ---
PT ARRIVED AT 0211 BY TRANSPORT PT ORIENTATED TO ROOM AND CALL LIGHT INFO FOR HEALTH HX PROVIDED BY PT AND PTS DAUGHTER. PT WAS ABLE TO GET SOME REST PT DID NOT COMPLAIN OF PAIN.
[2018-08-24 05:49] LABS: HEMOGLOBIN 9.5 gm/dL (14.0-18.0); MCV 87.8 fL (80.0-100.0)
[2018-08-24 05:50] LABS: HEMATOCRIT 28.5 % (42.0-52.0); MCH 29.2 pg (26.0-34.0); MCHC 33.3 g/dL (28.0-37.0); RBC 3.24 mil/uL (4.50-6.00); RDW 14.5 % (10.5-14.5)
[2018-08-24 05:54] LABS: WBC 1.7 thou/uL (4.0-11.0)
[2018-08-24 05:56] LABS: CALCIUM 8.2 mg/dL (8.5-10.1); CREATININE 1.3 mg/dL (0.7-1.3); POTASSIUM 3.8 mmol/L (3.5-5.1)
[2018-08-24 08:32] VITALS: BP 134/113
[2018-08-24 08:50] LABS: FOLIC ACID 6.8 ng/mL (8.6-58.9); TSH 0.327 uIU/mL (0.358-3.740)
[2018-08-24 09:09] LABS: WBC 2.9 thou/uL (4.0-11.0)
--- NOTE | 2018-08-24 12:42 | NUR ---
ASSUME PT CARE AT 0700H. PT A&O X4. PT STATES NO PAIN AT THE TIME. PT HAS NO S/S OF DISTRESS. PT STATES HAVING DIARRHEA THIS MORNING. NEW ORDERS WERE RECEIVED AND ACKNOWLEDGE FOR PRN. PT L CHEST PORT C/D/I. PT HAS FAMILY AT BEDSIDE. FAMILY CONCERN ABOUT BILATERAL SKIN TEAR AROUND ELBOWS AND PINKY R TOE COMING OFF. PICTURE TAKE AND ON THE CHART. CONSULT ORDERED. 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 AFTER CONSULT WITH DR. LEVINE. PT NEW ORDER TO GIVE MED WAS HELD DUE TO BP 79/49. PT CALL LIGHT WITHIN REACH AND PT CONTINUES TO BE MONITORED FOR SAFETY.
[2018-08-24 12:52] LABS: METAMYELOCYTES 7 %; MYELOCYTES 1 %
[2018-08-24 12:54] LABS: ANISOCYTOSIS 1+
[2018-08-24 12:55] LABS: OVALOCYTES FEW
[2018-08-24 12:58] LABS: TOXIC GRANULATION 1+
[2018-08-24 13:05] LABS: ABSOLUTE NEUTROPHILS 2.8 thou/uL (1.4-8.2)
[2018-08-24 14:00] VITALS: BP 98/51
[2018-08-24 19:56] VITALS: BP 84/50
[2018-08-25 00:10] VITALS: BP 77/41
[2018-08-25 04:16] VITALS: BP 86/34
[2018-08-25 04:26] VITALS: BP 154/99
[2018-08-25 05:51] LABS: HEMATOCRIT 27.4 % (42.0-52.0); HEMOGLOBIN 9.3 gm/dL (14.0-18.0); MCH 29.8 pg (26.0-34.0); MCHC 33.8 g/dL (28.0-37.0); MCV 88.1 fL (80.0-100.0); PLATELET COUNT 62 thou/uL (150-400); RBC 3.11 mil/uL (4.50-6.00); RDW 14.6 % (10.5-14.5)
[2018-08-25 08:00] VITALS: BP 94/62
[2018-08-25 08:32] LABS: ABSOLUTE NEUTROPHILS 1.5 thou/uL (1.4-8.2); ANISOCYTOSIS SLIGHT; ATYPICAL LYMPHS 1 %; METAMYELOCYTES 1 %; MYELOCYTES 4 %
--- NOTE | 2018-08-25 10:00 | NUR ---
rose visited with fanta at bedside. pt a & o x 3, pleasant and able to make his needs know. intro to cm, and dcp. " oh i will go home when able to. use cane. 1 fall on saturday, that is what landed me in here. home with , 2 step into home and there is basement, which i never go down. no rehab or home health in past. been on chemo for year for lymphoma. 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 if stomach would feel better, i could eat and go home"/fanta. cm left message for joseph and spoke with daughter silverio via phone call. no concerns voice. will cont following as needed for dc needs.
--- NOTE | 2018-08-25 11:11 | EKG ---
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 : 1940 Requested By: Yeimy Wolfe Order Number: [id number] MD: Jose Ramon Owen Measurements Intervals [place] Rate: 119 P: 37 TX: 103 QRS: 49 QRSD: 82 T: 49 QT: 359 QTc: 506 Interpretive Statements Sinus tachycardia Low voltage, extremity and precordial leads Baseline wander in lead(s) V3 Compared to ECG 11/08/2017 22:50:18 Sinus rhythm no longer present Atrial premature complex(es) no longer present Electronically Signed On 08-25-2018 11:11:30 OPERATIONS EXAMINER by Jose Ramon Owen [email or web address] <ELECTRONICALLY SIGNED> By: Jose Ramon Owen MD 08/25/18 1111 0500 0500 Jose Ramon Owen MD /EPI
--- NOTE | 2018-08-25 11:14 | EKG ---
[address] [address] ELECTROCARDIOGRAM REPORT Name: ARELIS SHAYE Room #: 459-P ADM IN M.R.#: [id number] Admission: 08/24/18 Attend Phys: Kevan Espinoza MD Discharge: Date of : 41 Report #: [id number] THIS REPORT FOR: //name// [facility] Test Date: 2018-08-24 Test Time: 09:26:33 Pat Name: ARELIS SHAY Department: Room: 459 P Gender: M Missile Facilities Repairer: JAVIER : 1940 Requested By: Kevan Espinoza Order Number: [id number] MD: Jose Ramon Owen Measurements Intervals [place] Rate: 106 P: 34 [place]: 154 QRS: 15 QRSD: 87 T: 26 QT: 324 QTc: 431 Interpretive Statements Sinus tachycardia Low voltage, extremity leads Baseline wander in lead(s) V2,V3 Compared to ECG 11/08/2017 22:50:18 Sinus rhythm no longer present Atrial premature complex(es) no longer present Electronically Signed On 08-25-2018 11:13:52 SOCIAL MEDIA DEVELOPER by Jose Ramon Owen [email or web address] <ELECTRONICALLY SIGNED> By: Jose Ramon Owen MD 08/25/18 1113 5 5 Jose Ramon Owen MD /EPI
[2018-08-25 16:09] VITALS: BP 97/61
--- NOTE | 2018-08-25 16:10 | NUR ---
ASSUMED PT AT 0700H. PT HAS NO S/S OF DISTRESS. PT STATES HAVING DIARRHEA. PT FAMILY STATES PRN MED MADE PT DROWSY. CONSULTED DR. LEVINE, NEW ORDERS TO GIVE HALF CURRENT DOSE. PT ALSO STATES BEING IN PAIN AT THE ABD OF 5/10. PT ABD ROUND AND FIRM. PT PRN MORPHINE COULD NOT BE ADMINISTERED PT BP WAS 94/62. PT STATES TYLENOL DOES NOT WORK AND WOULD PREFER OXYCODONE. CONSULTED DR. LEVINE, NEW ORDERS RECEIVED AND ACKNOWLEDGED FOR 1 TAB Q4H. PT CURRENTLY SLEEPING AT THIS TIME. CALL LIGHT WITHIN REACH AND CONTINUES TO BE MONITORED.
--- NOTE | 2018-08-25 18:08 | NUR ---
INDUSTRIAL CUSTODIAN NOTE: UPON ARRIVAL PT APPEARS DISTRESSED, TACHYPNIC AND TACHYCARDIC. C/O ABDOMINAL PAIN AND ABDOMEN APPEARS DISTENDED. STAT CT ORDERED. PT WILL TRANSFER TO THE ICU. DR MALIK TO BEDSIDE.
[2018-08-25 20:21] LABS: HEMATOCRIT 37.1 % (42.0-52.0); RBC 4.07 mil/uL (4.50-6.00)
[2018-08-25 20:22] LABS: CALCIUM 8.9 mg/dL (8.5-10.1); CREATININE 1.4 mg/dL (0.7-1.3); MCH 29.4 pg (26.0-34.0); MCHC 32.3 g/dL (28.0-37.0); MCV 91.2 fL (80.0-100.0); PLATELET COUNT 125 thou/uL (150-400); POTASSIUM 3.9 mmol/L (3.5-5.1); RDW 15.6 % (10.5-14.5); WBC 3.7 thou/uL (4.0-11.0)
[2018-08-25 20:26] LABS: BE(vivo) -4.2 mmol/L (-2 to +3); HCO3 18.6 mmol/L (22.0-26.0); PCO2 26.7 mmHg (35.0-45.0); sO2 97.4 % (92.0-98.0)
[2018-08-25 20:50] LABS: ABSOLUTE NEUTROPHILS 2.8 thou/uL (1.4-8.2); ANISOCYTOSIS 1+; HYPOCHROMASIA SLIGHT; LARGE PLATELETS RARE; METAMYELOCYTES 2 %
[2018-08-25 20:51] LABS: POIKILOCYTOSIS SLIGHT; POLYCHROMASIA OCCASIONAL
--- NOTE | 2018-08-25 23:38 | NUR ---
RECEIVED PT FROM FLOOR TO ICU. PT ALERT ORIENTED, C/O OF ABD PAIN THAT IS CHRONIC FROM LYMPHOMA. BP DROPPED DOWN TO 80'S, WITH MONITOR SHOWING TACHYCARDIA. FLUID BOLUS GIVEN PER SOUND PRINTER. PT BREATHING WITHOUT SOA, 02SAT 98 ON 2L. VOIDED SMALL AMT OFF DARK BILLY URINE, ABDOMINAL ASCITES, BUT DISTENDED WITH SOFTNESS,+BS. NO NAUSEA,EMESIS OR STOOLS AT THIS TIME. WILL KEEP NPO. SPOKE WITH MAE SOUND PRINTER, AND CALLED CONSULTS --SEE ORDERS FROM DR STOVALL, AND DR CHUA. BP IMPROVING WITH FLUIDS, STARTING SEPSIS PROTOCOL PER DR CHUA. WILL CONT TO MONITOR.
[2018-08-26] VITALS (20 sets, daily range): BP systolic 92–129; BP diastolic 50–79
[2018-08-26 00:08] LABS: HEMATOCRIT 25.9 % (42.0-52.0); MCH 29.4 pg (26.0-34.0); MCHC 33.4 g/dL (28.0-37.0); MCV 88.1 fL (80.0-100.0); PLATELET COUNT 58 thou/uL (150-400); RBC 2.94 mil/uL (4.50-6.00); RDW 14.5 % (10.5-14.5)
[2018-08-26 00:21] LABS: APTT 39.4 Seconds (24.5-32.8); INR 1.4; PROTIME 14.2 Seconds (9.3-11.4)
[2018-08-26 00:28] LABS: CALCIUM 8.1 mg/dL (8.5-10.1); CREATININE 1.2 mg/dL (0.7-1.3); POTASSIUM 3.6 mmol/L (3.5-5.1)
[2018-08-26 00:31] LABS: ALBUMIN 2.3 g/dL (3.4-5.0); TOTAL BILIRUBIN 0.5 mg/dL (<0.1-1.0); TOTAL PROTEIN 4.7 g/dL (6.4-8.2)
--- NOTE | 2018-08-26 00:41 | NUR ---
ASSUMED CARE OF PT AT 2200. PT ALERT AND ORIENTED. CONSULTS CALLED BY PREVIOUS RN. SEPSIS ORDERS INITIATED PER DR CHUA. ORDERS PLACED FOR PARACENTESIS TOMORROW. PT ST/SR ON THE MONITOR. BP SOFT, MUCH IMPROVED AFTER FLUIDS. PT ABLE TO AMBULATE TO TOILET WITH X1 ASSIST AND GAIT BELT. PT DENIES ANY DIZZINESS/LIGHTHEADEDNESS. PT STATES THAT HE FEELS THE URGE TO HAVE A BM, BUT IS UNABLE TO DEFECATE. PIZARRO PLACED PER DR CHUA, FOR STRICT OUTPUT MEASUREMENT. WILL CONTINUE TO MONITOR PT.
[2018-08-26 00:44] LABS: URINE BILIRUBIN NEGATIVE (Negative); URINE BLOOD NEGATIVE (Negative); URINE CLARITY CLEAR; URINE COLOR YELLOW; URINE GLUCOSE-RANDOM* NEGATIVE (Negative); URINE KETONES NEGATIVE (Negative); URINE LEUKOCYTES-REFLEX NEGATIVE (Negative); URINE NITRITE-REFLEX NEGATIVE (Negative); URINE PROTEIN (DIPSTICK) NEGATIVE (Negative); URINE UROBILINOGEN 0.2 E.U./dl (0.2-1.0)
[2018-08-26 00:45] LABS: ABSOLUTE NEUTROPHILS 1.9 thou/uL (1.4-8.2); METAMYELOCYTES 4 %; PLATELET ESTIMATE DECREASED
[2018-08-26 00:54] LABS: HEMOGLOBIN 8.6 gm/dL (14.0-18.0)
[2018-08-26 04:58] LABS: HEMATOCRIT 24.1 % (42.0-52.0); MCV 88.1 fL (80.0-100.0); PLATELET COUNT 59 thou/uL (150-400); RBC 2.74 mil/uL (4.50-6.00); RDW 14.6 % (10.5-14.5)
[2018-08-26 05:12] LABS: WBC 1.9 thou/uL (4.0-11.0)
[2018-08-26 05:18] LABS: CALCIUM 7.8 mg/dL (8.5-10.1); CREATININE 1.1 mg/dL (0.7-1.3); POTASSIUM 3.7 mmol/L (3.5-5.1)
[2018-08-26 06:47] LABS: ABSOLUTE NEUTROPHILS 1.6 thou/uL (1.4-8.2); METAMYELOCYTES 6 %
[2018-08-26 06:48] LABS: ANISOCYTOSIS 1+; OVALOCYTES 1+; TEARDROPS OCCASIONAL
[2018-08-26 06:50] LABS: TOXIC GRANULATION SLIGHT
--- NOTE | 2018-08-26 17:23 | NUR ---
ASSESSMENTS DOCUMENTED. PT A/0X4. VSS. BLOOD PRESSURES ADEQUATE. CTA WITH CONTRAST DONE THIS AM. MORPHINE SALESPERSON SHEET MUSIC PUMP STARTED - PT STATES HIS PAIN IS MORE CONTROLLED SINCE INITIATING THIS. PIZARRO PATENT. GOOD URINE OUTPUT. IV ATB GIVEN. FLUIDS INFUSING AT 80 ML/HR. UP WITH 1 ASSIST. PLAN FOR PARACENTESIS TOMORROW.
[2018-08-27] VITALS (27 sets, daily range): BP systolic 79–149; BP diastolic 36–71
[2018-08-27 06:51] LABS: HEMATOCRIT 27.8 % (42.0-52.0); HEMOGLOBIN 9.7 gm/dL (14.0-18.0); MCH 30.6 pg (26.0-34.0); MCHC 34.9 g/dL (28.0-37.0); MCV 87.8 fL (80.0-100.0); RBC 3.17 mil/uL (4.50-6.00); RDW 14.8 % (10.5-14.5)
[2018-08-27 06:57] LABS: APTT 37.9 Seconds (24.5-32.8); INR 1.3
--- NOTE | 2018-08-27 07:00 | NUR ---
Pt slept off and on through the night with stable VS and adequate SpO2 on RA. Using Morphine APPEALS REVIEWER VETERAN appropriately with adequate pain relief achieved. Guzman catheter irrigated several times for c/o bladder "fullness" with stated relief after each time. Pt taking in clear liquids with no c/o nausea and urine output adequate for shift. Am lab results noted, continue with POC.
[2018-08-27 07:02] LABS: CALCIUM 8.4 mg/dL (8.5-10.1); CREATININE 1.1 mg/dL (0.7-1.3); PLATELET COUNT 65 thou/uL (150-400); POTASSIUM 3.9 mmol/L (3.5-5.1); TOTAL BILIRUBIN 0.6 mg/dL (<0.1-1.0); TOTAL PROTEIN 4.7 g/dL (6.4-8.2); WBC 1.7 thou/uL (4.0-11.0)
[2018-08-27 07:26] LABS: ABSOLUTE NEUTROPHILS 1.4 thou/uL (1.4-8.2)
[2018-08-27 07:28] LABS: ANISOCYTOSIS 1+; OVALOCYTES FEW
--- NOTE | 2018-08-27 07:34 | HC ---
[facility] [place] [place] [address] CONSULTATION Name: JASPALARELIS ROGERS Room #: 242-P ADM IN M.R.#: [id number] Admission: 08/24/18 Attend Phys: Kevan Espinoza MD Discharge: Date of : 41 Report #: [id number] THIS REPORT FOR: //name// CC: HEIDI Gonsalez REASON FOR CONSULTATION: History of lymphoma and cytopenia. HISTORY OF PRESENT ILLNESS: The patient is a 78-year-old patient that I had known for a number of years. 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 Unfortunately, he was diagnosed with a follicular grade 3 lymphoma in about 04/2017. At that time, it was grade 1-2/3. He received bendamustine and rituximab beginning in 05/2017. He received his 6th cycle on 10/01/2017. He then had some progression in the central retroperitoneum and a biopsy done at [facility] on 11/18/2017 showed follicular grade 3A of 3. He then began R-CHOP with the last chemotherapy on 12/05/2017.. His 6th cycle was given on 03/20/2018. A PET scan on 04/03/2018 showed further improvement, but still persistent disease. Because of the nature of disease, he was evaluated for possible high dose therapy and stem cell transplant. He declined that and because of that, he has been on maintenance Rituxan. Unfortunately, recently, he had some progressive disease. He was being evaluated for possible salvage therapy and then dropped his counts out. He had a bone marrow biopsy on 08/19/2018 at . This showed a hypocellular bone marrow of 20% with dysmegakaryopoiesis, increased megakaryopoiesis, decreased granulopoiesis with left shift, maturation arrest and megaloblastoid maturation, 3% blasts negative for lymphoma. The comment mentioned that nutritional deficiency should be considered such as B12 and folate. They suggest return, and they were not yet drawn. They will be run on today's lab work. Note also that cytogenetics are not yet back. The patient's last imaging of his lymphoma was about 06/26, though he had a recent PET scan if I recall. The patient was admitted after falling at home. He has had progressive weight loss and fatigue. He has also had some low grade fevers of around 99 or very low 100s. At this time, he denies headache, visual troubles, mouth sores, enlarging lymph nodes, skin rash, ankle swelling. He does feel short winded, though he does not cough or wheeze. He is not aware of any bruising. He is not aware of any blood in his urine or stool. He does have chronic diarrhea. He did tell me that his and daughter has been healthy lately. PAST MEDICAL HISTORY: As mentioned is notable for the grade 1-2, now grade 3 lymphoma with progression. Also, history of erythrocytosis, history of hypertension, urinary retention after surgery, bilateral cataract surgery, [facility] [address] [place] [address] CONSULTATION Name: ARELIS SHAY KEN Room #: 242-P [facility] IN M.R.#: [id number] Admission: 08/24/18 Attend Phys: Kevan Espinoza MD Discharge: Date of : 42 Report #: [id number] tonsillectomy, pilonidal cyst removal, right rotator cuff surgery, mesenteric stents placed on 07/[address] Heidi scott. 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 Past smoker, no significant alcohol. PHYSICAL EXAMINATION: VITAL SIGNS: The patient's height is 5 feet 10 inches or 177.8 cm. Weight 166 pounds, 75.3 kilograms. Blood pressure 118/70, pulse 85, respirations 20, pulse on several times gotten up around 120. He is afebrile. MOOD: He is alert and pleasant, fatigued. NEUROLOGIC: Face is symmetrical, moving all extremities. LUNGS: Seem clear with symmetric and unlabored expansion without wheezes or rhonchi. HEART: Regular rate. ABDOMEN: Soft, tender midline, but it is down deep. EXTREMITIES: Without clubbing or cyanosis. There may be trace edema. LABORATORY DATA: Here notable for a BUN of 30, creatinine of 1.3. Liver functions not drawn this time, but recently in the office I believe had been normal. White count 3 yesterday, 1.7 today. Hemoglobin 10.3 yesterday, 9.5 today. MCV 87.8, RDW 14.5. Platelets 90 yesterday, 82 today. Differential on yesterday's lab work was slight increase of bands with absolute neutrophils of 2800, some lymphocytes and monocytes, 1 atypical lymphocyte. ASSESSMENT AND PLAN: 1. Pancytopenia. Bone marrow worrisome for either evolving MDS versus nutritional deficiency. Cytogenetics pending. We will run B12, folate, TSH on today's lab, initiate replacement if low. 2. Follicular grade 3 lymphoma with progression, being evaluated for possible salvage therapy, pending improvement in cytopenia. 3. Fall at home. The patient is unclear why he fell, may have been from deconditioning. PT, OT to see. Follow serial blood pressures. 4. 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 5. Low grade fever. Continue monitoring. 6. 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 7. Diarrhea, chronic in nature, has seen Dr. Azevedo in the past. 8. Hypertension in the past. 9. Weight loss and protein-calorie malnutrition. Continue monitoring and following. We will follow with you. <ELECTRONICALLY SIGNED> By: Peter Chambers MD 08/27/18 0734 0741 1053 Peter Chambers MD /nt
[2018-08-27 13:21] LABS: BF NUCLEATED CELLS 1578; BF RBC 1506
[2018-08-27 13:32] LABS: CLARITY HAZY; COLOR YELLOW; TOTAL VOLUME 60 mL
[2018-08-27 14:24] LABS: SOURCE ABDOMINAL FLUID
[2018-08-27 14:26] LABS: BF MACROPHAGE 1; BF NEUTROPHILS 97
[2018-08-27 15:05] LABS: URINE CLARITY CLEAR; URINE COLOR YELLOW; URINE SPECIFIC GRAVITY 1.025 (1.005-1.035)
[2018-08-27 15:06] LABS: ICTOTEST (BILI CONFIRMATORY) Negative (Negative); URINE BILIRUBIN NEGATIVE (Negative); URINE BLOOD 3+ (Negative); URINE GLUCOSE-RANDOM* NEGATIVE (Negative); URINE KETONES TRACE (Negative); URINE LEUKOCYTES NEGATIVE (Negative); URINE NITRITE NEGATIVE (Negative); URINE PROTEIN (DIPSTICK) 2+ (Negative); URINE UROBILINOGEN 0.2 E.U./dl (0.2-1.0)
[2018-08-27 15:18] LABS: CRYSTALS None Seen /LPF (None Seen); SQUAMOUS 0-3 Few /LPF (0-3); URINE RBC >20 Many /HPF (0-2); URINE WBC 6-15 Few /HPF (0-5)
[2018-08-27 15:19] LABS: BACTERIA None Seen /HPF (None Seen); COARSE GRANULAR CASTS 4-10 Moderate /LPF (None Seen)
--- NOTE | 2018-08-27 18:02 | HC ---
[facility] [place] [address] CONSULTATION Name: ARELIS SHAY Room #: 242-P ADM IN M.R.#: [id number] Admission: 08/24/18 Attend Phys: Augusto Paniagua Discharge: Date of : 42 Report #: [id number] THIS REPORT FOR: //name// CC: Kevan Gonsalez PULMONARY CONSULTATION PRIMARY CARE PHYSICIAN: Kemi Gonsalez MD. REFERRAL PHYSICIAN: Natacha White MD. REASON FOR REFERRAL: Sepsis, hypotension. HISTORY OF PRESENT ILLNESS: The patient is a 78-year-old gentleman with history of lymphoma, cytopenia admitted with weakness and recent fall. The patient was admitted on 08/24/2018. Since then, he has developed hypotension, suspicious of possible sepsis. A Pulmonary Critical Care consultation was requested. The patient was diagnosed with follicular grade 3 lymphoma in 03/2017. The patient had received chemotherapy over the past year. The patient has subsequent progression involving his intra-abdominal cavity including the central retroperitoneum. A repeat biopsy performed in 10/2017 showed grade 3A of 3. He then received additional different chemotherapeutic regimen in 12/2017. PET scan performed on 04/2018 showed improvement, but the disease persisted. He has also been seen at [facility] for possible stem cell transplantation. He was most recently evaluated for pancytopenia. He had a bone marrow biopsy done last week at [facility]. He was found to have hypocellular bone marrow. Chemotherapy is present on hold due to pancytopenia. The patient has had trouble with fatigue, weakness. He has had a fall recently. He did not sustain any injuries. With worsening weakness, he presents to Emergency Room. Overnight, the patient was found to be hypotensive. Abdominal CT shows possible air within the intra-abdominal mass. The patient is suspected to have possible intra-abdominal sepsis. Overnight blood culture was positive. He is currently stable, complaining of chronic mid abdominal pain. He feels weak. Denies any dyspnea, chest pain or productive cough. PAST MEDICAL HISTORY: As mentioned above. Also, he has a history of hypertension, urinary retention, chronic diarrhea, chronic kidney disease. PAST SURGICAL HISTORY: As mentioned above including bilateral cataract surgery, tonsillectomy, right rotator cuff surgery, stent placement of the mesenteric artery and Port-A-Cath placement. [address] [address] CONSULTATION Name: ARELIS SHAY Room #: [facility] IN M.R.#: [id number] Admission: 08/24/18 Attend Phys: Augusto Paniagua Discharge: Date of : 41 Report #: [id number] ALLERGIES: None to medications. HOME MEDICATIONS: Oxycodone, Plavix, opium tincture, Flomax, Neurontin, Lomotil, colestipol. FAMILY HISTORY: Noncontributory. SOCIAL HISTORY: He has smoked cigarettes in the past, but quit some time ago. He drinks socially. He has a daughter, who is an RN. REVIEW OF SYSTEMS: As mentioned above is notable for weakness, recent falls. Otherwise, 10-point system review negative. PHYSICAL EXAMINATION: GENERAL: He is awake, alert, in no distress. He appears moderately weak. VITAL SIGNS: Temperature is 98.3 degrees Fahrenheit, pulse is 90, respiratory rate is 20, blood pressure 97/61 mmHg, saturation 100%. HEENT: Normocephalic, atraumatic. NECK: Supple. No lymphadenopathy or thyromegaly. CHEST: Breath sounds are good with few scattered crackles in the bases. No wheezes. CARDIOVASCULAR: Normal S1, S2. No murmurs or gallop. There is no JVD. There is no carotid bruit. Pulses are 2+/4+ bilaterally. ABDOMEN: Soft, mildly tender in the mid abdomen. No obvious masses felt. No rebound tenderness. GENITOURINARY: Deferred. RECTAL: Deferred. EXTREMITIES: No edema, cyanosis or clubbing. LABORATORY DATA: A CT chest angiogram, small bilateral pleural effusion, large central right peroneal mass increased in size with gas within the mass suggestive of necrosis, vascular structure appears to be patent, prominence of the veins with narrowing and obstruction at the mid portion of the mesenteric vein. Procalcitonin level was 17.9. CT abdomen and pelvis shows moderate abdominal and pelvic ascites, interval liquefaction and necrosis of the dominant mesenteric masses surrounding the mesenteric vessels including the superior mesenteric artery, celiac artery, superior mesenteric artery branches. Admitting creatinine is 1.5, today is 1.1. WBC of 1900 with 10% bandemia, hemoglobin 8.0, platelets 59,000. MCH and MCHC are normal. Albumin 2.3. Arterial blood gas revealed pH 7.46, pCO2 of 26, pO2 90 on 2 liters of O2. Preliminary blood culture grew gram-negative rods, gram-positive cocci. IMPRESSION: 1. Hypotension in this 78-year-old white male with intra-abdominal lymphoma. CT abdomen shows possible necrosis involving his abdominal mass. Blood culture [facility] [address] [place] [address] CONSULTATION Name: ARELIS SHAY Room #: 242-P ADM IN M.R.#: [id number] Admission: 08/24/18 Attend Phys: Augusto Paniagua Discharge: Date of : 41 Report #: [id number] is positive. He has a Port-A-Cath. He has ascites. 2. Source of bacteremia is probably intraabdominal. Cannot rule out subacute bacterial peritonitis, would also need to consider central line induced bacteremia. 3. Severe sepsis, hypotension, stable on sepsis protocol. 4. Chronic kidney disease, creatinine has in fact improved over the last couple of days. He just underwent a CT chest angiogram, will need to monitor urine output closely. 5. Anemia. 6. Severe protein-calorie malnutrition. 7. Acute hypoxic respiratory failure due to severe sepsis. Chest x-ray remains relatively clear. 8. Follicular grade 3 lymphoma involving the retroperitoneum, CT chest as mentioned above, initially diagnosed in 03/2017 with recurrence, now with pancytopenia. The patient has undergone chemotherapy in the past. Plans are to continue chemotherapy once cytopenia has resolved. 9. Progressive weakness and falls, multifactorial including ongoing lymphoma. 10. Chronic abdominal pain, it has been present over the past year. 11. Chronic diarrhea. RECOMMENDATIONS: I agree with sepsis protocol, maintain a systolic pressure greater than 90 or mean arterial pressure greater than 60. Monitor urine output closely. Broad spectrum antibiotics. I agree with Infectious Disease consultation. In regards to his bacteremia, we will need to address whether or not the Port-A-Cath is now infected along with whether he has involvement of his ascitic fluid. Plan for paracentesis furthermore is noted. Otherwise, he is relatively stable from pulmonary standpoint for now. DVT and GI prophylaxis is recommended. Critical care 1 hour. Thank you for this consultation. <ELECTRONICALLY SIGNED> By: Roby Yost MD 08/27/18 1802 1255 1600 Roby Yost MD /nt
--- NOTE | 2018-08-27 18:39 | NUR ---
Assumed care of patient at 0700. Patient resting in bed, c/o zhang catheter discomfort but nothing else. Denies abd pain or nausea. Plans for ultrasound guided thoracentesis - done bedside with Dr. Bledsoe, 6400 ml removed. Patient tolerated well, denies pain or shortness of breath afterwards. Mid-morning, patient had episode of chills, shakiness, tachycardia. Checked temperature, it is normal, afebrile. Dr. Louis notified, blood cultures, and urine culture sent. Episode subsided within 30 minutes. Later in the day, episode happened again, chills and tachycardia lasting approx 40 minutes long. Adriana hugger applied, PRN morphine given. Zhang catheter removed, patient able to void small amounts at a time. Post void residual showed 74ml. Patient is asking to not have catheter replaced right away, will continue to monitor. Morphine TRAINING AND DEVELOPMENT MANAGER discontinued, pain is tolerable with oral hydrocodone and IVP PRN morphine. Has orders to transfer to [facility], althought patient and family request he stay ICU a bit longer to monitor for more chills/tachycardia episodes. Continue to monitor.
[2018-08-28] VITALS (18 sets, daily range): BP systolic 86–123; BP diastolic 47–60
[2018-08-28 05:21] LABS: ALBUMIN 1.4 g/dL (3.4-5.0); CREATININE 1.1 mg/dL (0.7-1.3); MAGNESIUM 1.1 mg/dL (1.8-2.4); POTASSIUM 3.4 mmol/L (3.5-5.1); RBC 2.53 mil/uL (4.50-6.00); TOTAL BILIRUBIN 0.4 mg/dL (<0.1-1.0); TOTAL PROTEIN 3.5 g/dL (6.4-8.2)
[2018-08-28 05:23] LABS: HEMATOCRIT 22.3 % (42.0-52.0); MCH 29.3 pg (26.0-34.0); MCHC 33.2 g/dL (28.0-37.0); MCV 88.2 fL (80.0-100.0); PLATELET COUNT 45 thou/uL (150-400); RDW 14.7 % (10.5-14.5)
[2018-08-28 05:29] LABS: HEMOGLOBIN 7.4 gm/dL (14.0-18.0); WBC 1.2 thou/uL (4.0-11.0)
[2018-08-28 06:36] LABS: ABSOLUTE NEUTROPHILS 0.8 thou/uL (1.4-8.2); METAMYELOCYTES 1 %; PLATELET ESTIMATE DECREASED; PROMYELOCYTES 1 %
--- NOTE | 2018-08-28 07:51 | NUR ---
END OF SHIFT NOTE: ASSUMED CARE @1900 08/27/18, ASSESSMENTS AND VSS COMPLETE PER PROTOCOL, PT ALERT AND ORIENTED X4, PT ABLE TO FOLLOW COMMANDS, PT DENIES PAIN. PT STATUS STABLE, NO ACUTE CHANGES DURING THE NIGHT.
[2018-08-28 09:04] LABS: SOURCE ABDOMINAL
[2018-08-28 10:06] LABS: BODY FLUID ALBUMIN 0.7 g/dL (()); BODY FLUID AMYLASE 5 U/L (()); BODY FLUID GLUCOSE 85 mg/dL (()); BODY FLUID LDH 116 IU/L (()); BODY FLUID PROTEIN 1.4 g/dL (())
--- NOTE | 2018-08-28 10:09 | NUR ---
WOUND CONSULT: PT. WAS SEEN ON 08/27/[address] SWEENEY AND MYSELF. PT. HAS BILATERAL SKIN TEARS TO HIS ELBOWS THAT ARE DRY, INTACK AND STABLE. PT. ALSO HAS SOME BRUSING TO HIS PINKY TOE. ALL IN RELATION TO A FALL PRIOR TO ADMIT. RECOMMENDATIONS: LEAVE ALL SITES NEELAM AND MONITOR FOR SIGNS AND SYMPTOMS OF INFECTION. PT. AND STAFF NURSE WERE INSTRUCTED ON PLAN OF CARE.
--- NOTE | 2018-08-28 13:38 | HC ---
[facility] [place] [address] CONSULTATION Name: JASPALARELIS ROGERS Room #: 242-P ADM IN M.R.#: [id number] Admission: 08/24/18 Attend Phys: Augusto Paniagua Discharge: Date of : 42 Report #: [id number] THIS REPORT FOR: //name// CC: Augusto Gonsalez DATE OF SERVICE: 08/27/2018 CHIEF COMPLAINT: Right fifth toe injury and elbow ulcerations. HISTORY OF PRESENT ILLNESS: This is a 78-year-old male patient who was admitted to the hospital with a past history of lymphoma, currently on chemotherapy. He has a history of hypertension and neuropathy. He presented to the Emergency Department having fallen, with increased weakness. He had torn the toenail on his right fifth toe. He also had ulcerations on his elbows. I have been asked to see him with regard to this. He is in the ICU. He is awake and alert. He is complaining of shaking chills, but denies any pain associated with this. PAST MEDICAL HISTORY: Positive for history of sepsis in the summer of 2016, history of hypertension, bilateral lower extremity neuropathy and history of diverticulitis. He has had chemotherapy for lymphoma, mesenteric mass biopsy in 2017 and Port-A-Cath placement in 12/2017. SOCIAL HISTORY: Positive for previous smoking, having quit greater than a year ago. No alcohol use. FAMILY HISTORY: Noncontributory. REVIEW OF SYSTEMS: CONSTITUTIONAL: The patient does complain of chills. Denies fever. Denies recent weight loss. EYES: The patient denies visual changes, redness or drainage. ENT: The patient denies earache, nasal drainage or sore throat. CARDIOVASCULAR: The patient denies chest pain, palpitations or diaphoresis. PULMONARY: The patient denies cough or shortness of breath. GASTROINTESTINAL: The patient complains of mild abdominal discomfort. Denies nausea, vomiting or diarrhea at present. ORTHOPEDIC: The patient notes the ulcerations on his elbows as well as the injury to his right fifth toe, which he thinks is now improved. Other systems in a 14-point review of systems are negative. PHYSICAL EXAMINATION: VITAL SIGNS: At this time include temperature 97.7, pulse 71, respiratory rate of 14 and blood pressure 121/71. GENERAL: This is a chronically ill-appearing male patient who appears to be in minimal distress. [address] [address] CONSULTATION Name: JASPALARELIS KEN Room #: 242-P [facility] IN M.R.#: [id number] Admission: 08/24/18 Attend Phys: Augusto Paniagua Discharge: Date of : 41 Report #: [id number] HEENT: Head normocephalic. Nose and throat are clear. NECK: Supple. LUNGS: Clear. ABDOMEN: Soft. Bowel sounds present. EXTREMITIES: Examination of the extremities demonstrates palpable distal pulses. The right fifth toe shows a small evidence of avulsion of the toenail that appears to be stable and intact at this time, with no evidence of infection. He has scabs on both elbows bilaterally. They are not infected, draining or moist. CLINICAL IMPRESSION: 1. Traumatic injury to the right fifth toe with partial nail avulsion that appears to be settling down nicely. 2. Pressure ulcerations versus traumatic abrasions to the elbows bilaterally, with dry scab in place. 3. History of lymphoma. RECOMMENDATIONS: At this point in time, there is really no dressing required for any of these areas. I think we could leave the elbows open to air as well as the toe open to air and simply observe for any signs of infection or deterioration. We will recommend continuing with some medications. Aggressive nutritional support would be appropriate. Thank you for asking me to see him in consultation. <ELECTRONICALLY SIGNED> By: Wayne Mariee MD 08/28/18 1338 1701 0052 Wayne Mareie MD /nt
[2018-08-28 14:32] LABS: MAGNESIUM 1.3 mg/dL (1.8-2.4); POTASSIUM 3.5 mmol/L (3.5-5.1)
--- NOTE | 2018-08-28 14:47 | NUR ---
WOUND FOLLOW UP: PT. WAS SEEN TODAY BY DR. SWEENEY AND MYSELF. PT. WOUNDS ARE STABLE AT THIS TIME. RECOMMENDATIONS: CONTINUE WITH CURRENT PLAN OF CARE. PT. AND STAFF NURSE WERE INSTRUCTED ON PLAN OF CARE.
--- NOTE | 2018-08-28 15:05 | PATH ---
[facility] [address] [place] [address] PATHOLOGY RPT PROCEDURE Name: ARELIS SHAY Room #: 242-P ADM IN M.R.#: [id number] Admission: 08/24/18 Date of : 42 Discharge: Report #: [id number] Path Case #: [id number] Note [facility] Accession Number: [id number] TESTS RESULT FLAG UNITS REF RANGE LAB Clinician Provided Cytology Information No. of containers..01 Other (Miscellaneous) Source: 01 ABDOMINAL FLUID DIAGNOSIS: 02 ABDOMINAL FLUID NEGATIVE FOR MALIGNANT CELLS. MESOTHELIAL CELLS ARE PRESENT. THIS INTERPRETATION INCLUDES EVALUATION OF A CELL BLOCK. MARKED ACUTE INFLAMMATION. Signed out by: Vielka Mccoy MD, Pathologist NPI- [id number] Performed by: Sergio Scott, Housing Quality Standard Inspector ([facility]) Gross description: 01 15 ML, YELLOW, CLOUDY /LCS FLAG LEGEND: L-Low Normal,H-High Normal,LL-Alert Low,HH-Alert High <-Panic Low,>-Panic High,A-Abnormal,AA-Critical Abnormal Performed at: [address] [place] [address] Joselo Peralta MD, [address] [address] Vielka Mccoy MD, Specimen Comment: A courtesy copy of this report has been sent to Specimen Comment: [phone]. Specimen Comment: Report sent to Performed at: [address], [place], [place] [id number] MD Joselo Peralta MD Phone: [phone]
--- NOTE | 2018-08-28 16:02 | NUR ---
SHIFT SUMMARY: ALERT AND ORIENTED AND HAS DENIED PAIN. VITALS STABLE. TOLERATING DIET W/O NAUSEA. UP TO THE BATHROOM MULTIPLE TIMES WITH LIQUID STOOL. FIRST COUPLE STOOLS THIS MORNING BLOODY AND DR. LEVINE NOTIFIED. NO LONGER BLOODY THIS AFTERNOON. MS/TELE ORDERS IN [employer]. PATIENT WAITING FOR ROOM TO BECOME AVAILABLE. FAMILY AT THE BEDSIDE ALL DAY AND UPDATED ON POC.
[2018-08-28 20:13] LABS: MAGNESIUM 1.9 mg/dL (1.8-2.4); POTASSIUM 3.2 mmol/L (3.5-5.1)
[2018-08-29] VITALS (9 sets, daily range): BP systolic 86–114; BP diastolic 40–59
[2018-08-29 04:25] LABS: HEMATOCRIT 23.4 % (42.0-52.0); HEMOGLOBIN 7.7 gm/dL (14.0-18.0); MCV 87.8 fL (80.0-100.0)
[2018-08-29 04:27] LABS: PLATELET COUNT 66 thou/uL (150-400); RBC 2.66 mil/uL (4.50-6.00); RDW 14.9 % (10.5-14.5)
[2018-08-29 04:28] LABS: ALBUMIN 1.7 g/dL (3.4-5.0); CALCIUM 8.1 mg/dL (8.5-10.1); CREATININE 1.3 mg/dL (0.7-1.3); PHOSPHORUS 2.5 mg/dL (2.5-4.9)
[2018-08-29 04:29] LABS: WBC 1.3 thou/uL (4.0-11.0)
[2018-08-29 05:03] LABS: ABSOLUTE NEUTROPHILS 0.8 thou/uL (1.4-8.2); METAMYELOCYTES 3 %
[2018-08-29 05:04] LABS: PLATELET ESTIMATE DECREASED
--- NOTE | 2018-08-29 06:26 | NUR ---
ASSUMED CARE AT 1900 08/28/18, PT ASSESSMENTS AND VSS COMPLETE PER CC-TELE ORDERS. PT ALERT AND ORIENTED X4, PT ABLE TO FOLLOW COMMANDS, HYDROCODONE GIVEN X2 DURING THIS SHIFT. PT ON RA SATS IN THE HIGH 90'S. PT IN SR, BP STABLE, EDEMA PRESENT PLEASE SEE INTERVENTION. PT HAS MULTIPLE EPISODES OF DIARRHEA, THIS IS AN ONGOING ISSUE. CRITICAL WBC CALLED TO [facility] SINGH, NO ORDERS RECIEVED. FALL PRECAUTIONS IN PLACE, PLAN OF CARE- CONTINUE TO MONITOR AND PREPARE FOR TRANFER TO CCU TELE FLOOR.
--- NOTE | 2018-08-29 08:01 | NUR ---
FOLLOWING FOR DC PLANNING. CLINICAL INFO REVIEWED. PT CONTINUES TO BE PANCYTOPENIC, CULTURES FROM 08/27 REMAIN POSITIVE AND ON IV ABX WITH ID FOLLOWING. PT WAS EVALUATED BY P.T. 08/25 AND DISCHARGED. DC PLAN IS HOME WITH SPOUSE WHEN MEDICALLY STABLE. CM AVAILABLE TO ASSIST WITH COORDINATION OF ANY DC NEEDS.
--- NOTE | 2018-08-29 14:02 | NUR ---
WOUND FOLLOW UP: PT. WAS SEEN TODAY BY DR. SWEENEY AND MYSELF. PT. WOUNDS ARE ALL STABLE AND DRY WITH NO ISSUES OR CONCERNS. RECOMMENDATIONS: CONTINUE WITH CURRENT PLAN OF CARE. PT. AND STAFF NURSE WERE INSTRUCTED ON WOUND CARE.
--- NOTE | 2018-08-29 15:52 | NUR ---
PATIENT ALERT AND ORIENTED X4, SINUS TACHYCARDIA ON POINTER MACHINE OPERATOR. PATIENT HAS POOR APETITE, COMPLETED MAGIC ICE CREAM FOR LUNCH. UP WITH X1 ASSISTANCE, SHORTNESS OF BREATH WITH MOVEMENT. RIGHT PINKY TOE WOUND OPEN TO AIR. PATIENT ON BEAR HUGGER FOR COMFORT. REPORTING FEELING CHILLS, INCREASED TEMPERATURE. ABDOMINAL PAIN NOT RELIEVED WITH MEDICATION. DR. LEVINE NOTIFIED OF CHANGE OF STATUS, ORDERED STAT CT SCAN. DR. LEVINE STATED TO TRANSFER PATIENT TO LOWER LEVEL OF CARE FOLLOWING CT SCAN. TRANSFERRED TO [facility] BY CHARGE NURSE. REPORT GIVEN TO JULIÁN QUINTANILLA.
--- NOTE | 2018-08-29 16:29 | NUR ---
report received from Sonam/RN in icu @ 0340. states pt headed to ct for scan abdomen/pelvis w/ contrast. belongings brought to room by family member. pt received via wc by x2 hospitality internship to room 361. x2 family members at bs. pt settled into room and vs taken.
--- NOTE | 2018-08-30 05:25 | NUR ---
PT ON COMFORT CARE. MOST HIS ORDERS DC'D, NOW ON PAIN MANAGEMENT AND ABX. DAUGHTER HAD EARLIER INDICATED TO STOP ABX BUT ASKED HER AGAIN AND SHE SAID WE SHOULD CONTINUE WITH ABX IF NEEDED. FAIRLY COMFORTABLE, PRN MORPHINE USED ONE TIME. OTHERWISE HE DENIES PAIN. LEFT AC IV DC'D, INFILTRATED. NOW UTILIZING THE LEFT CHEST POT. WILL CONTINUE FOLLOW POC
[2018-08-30 07:48] VITALS: BP 91/57
--- NOTE | 2018-08-30 18:16 | NUR ---
Assumed care of Pt at 0700. Pt AOX4. pain well controlled with current med regimen. family at bedside throughout shift, helping with patient care. frequent jelly like maroon colored stools. on comfort care. pt progressing toward poc golas.
[2018-08-30 20:57] VITALS: BP 82/51
[2018-08-31 05:10] VITALS: BP 91/54
[2018-08-31 06:33] LABS: URINE BILIRUBIN NEGATIVE (Negative); URINE BLOOD NEGATIVE (Negative); URINE CLARITY CLOUDY; URINE COLOR COLORLESS; URINE GLUCOSE-RANDOM* NEGATIVE (Negative); URINE KETONES NEGATIVE (Negative); URINE LEUKOCYTES NEGATIVE (Negative); URINE NITRITE NEGATIVE (Negative); URINE PROTEIN (DIPSTICK) NEGATIVE (Negative); URINE UROBILINOGEN 0.2 E.U./dl (0.2-1.0)
[2018-08-31 07:55] VITALS: BP 79/42
--- NOTE | 2018-08-31 08:32 | NUR ---
ASSUMED CARE OF PT AT 1900. A&Ox4, PLEASANT. BPs SOFT THROUGHOUT SHIFT. C/O PAIN, MEDS GIVEN DOCUMENTED W/ PARTIAL RELIEF. LOW UOP, BLADDER SCAN SHOWED >750, CONTACTED C T TECH, STRAIGHT CATH'D W/ 300 UOP. LASIX GIVEN AND FLOMAX RESTARTED. FAMILY AT BEDSIDE AND ASSISTED PT TO USED URINAL AND TAKE A BATH. NO BMS THIS SHIFT. SLOW PROGRESSION TOWARDS POC GOALS. WILL CONTINUE TO PROVIDE CARE AND MONITOR.
[2018-08-31 15:54] VITALS: BP 80/39
--- NOTE | 2018-08-31 18:10 | NUR ---
BLADDER SCAN PT AND MOST FLUID SHOULD PROPABLE ASCITES. PT'S DPOA (CARITO) INSTRUCTED ME TO HOLD OFF ON STRAIGHT CATH. PT TO GO TO HOSPICE CARE IN THE AM.
--- NOTE | 2018-08-31 18:52 | NUR ---
MOI REPORT GIVEN TO SHAY GALLEGO.
[2018-08-31 19:35] VITALS: BP 72/42
--- NOTE | 2018-09-01 08:03 | NUR ---
NURSE ASSUMED CARE OF PATIENT AT 1900. PATIENT IS CURRENTLY RECEIVING COMFORT CARE. VITAL SIGNS MOSTLY STABLE WITH PATIENT EXHIBITING HYPOTENSION. ALERT AND ORIENTED, PATIENT AND FAMILY ABLE TO CALL APPROPRIATELY FOR NEEDS. PATIENT IS STOIC AND WILL OFTEN UNDER REPORT PAIN. PATIENTS FAMILY IS HEAVILY INVOLVED IN CARE AND IS A GREAT RESOURCE, AND OF GREAT COMFORT TO PATIENT. NO TROUBLES BREATHING. UP MULTIPLE TIMES TO BEDSIDE COMMODE WITH ASSISTANCE INCIDENT FREE. PATIENT IS CONSIDERED A HIGH FALL RISK. NURSING STAFF ALERTED BY PATIENTS DAUGHTER OF SKIN BREAKDOWN IN SACRAL AREA. CONSULT TO RECYCLING COLLECTIONS DRIVER PLACED. PATIENT POSSIBLY TO HOSPICE TODAY, PLAN STILL NOT COMPLETELY DECIDED. CONTINUE PLAN OF CARE.
[2018-09-01 08:42] LABS: ALBUMIN 1.5 g/dL (3.4-5.0); CALCIUM 8.5 mg/dL (8.5-10.1); CREATININE 2.3 mg/dL (0.7-1.3); MAGNESIUM 1.7 mg/dL (1.8-2.4); PHOSPHORUS 4.4 mg/dL (2.5-4.9)
[2018-09-01 09:12] VITALS: BP 79/47
--- NOTE | 2018-09-01 10:57 | NUR ---
ON-GOING ASSESSMENT: CM REVIEWED CHART AND MET WITH PATIENT/DAUGHTER/PATIENTS AT THE BEDSIDE. PT IS NOW DNR/COMFORT CARE. CM MET WITH PATIENT AND FAMILY AT THE BEDSIDE. FAMILY STATING THEY WERE DECIDING BETWEEN HOSPICE HOUSE OR HOME WITH HOSPICE. CM MET WITH PATIENT AND FAMILY AND THEY REPORT THAT THEY HAVE DECIDED TO GO HOME WITH HOSPICE AND PREFERL TO USE HOSPICE SO THAT WAY IF AT HOME DOES NOT WORK THEN PATIENT CAN LIKELY GO TO THE HOSPICE HOUSE FROM THERE. CM CONTACTED HOSPICE: [phone] AND FAXED REFERRAL TO HOSPICE FAX:[phone]. CM SPOKE WITH INTAKE AT [facility] WHO REPORT THEY CAN HAVE A NURSE COME OUT FOR THE EVAL AND ADMIT AROUND 1400 TODAY. CM NOTIFIED ATTENDING AND PT/FAMILY.
--- NOTE | 2018-09-01 12:48 | NUR ---
on-going assessment: MISHA SPOKE WITH INTAKE AT [facility] AND [facility] IS COMING OUT TODAY TO DO EVAL. PATIENT THEN WILL LIKELY DISCHARGE HOME TOMORROW WITH [facility] WITH TENTATIVE PLAN FOR 1500. WHEN DISCHARGE ORDERS ARE WRITTEN CONTACT HOSPICE [facility] ON CELL:[phone] TO NOTIFY AND THEY HAVE A TENATIVE DISCHARGE SCHEDULED FOR THIS PATIENT FOR 1500. FAX DISCHARGE ORDERS AND SUMMARY TO [facility] FAX:[phone]. TRANSPORTATION WILL BE VIA [facility]. [employer] ARRANGING TENATIVE TIME FOR 1500 PICKUP 09/02/17. [facility] FORM IS ON THE FRONT OF PATIENTS CHART. CONTACT [facility]: [phone] IF ANYTHING CHANGES.
--- NOTE | 2018-09-01 13:02 | NUR ---
dp faxed ambulance form to [facility], pickup time will be 09/02/18 at 1500. Patient will dc 09/02/18 to his home for care from Hospice.
[2018-09-01 18:00] VITALS: BP 90/48
--- NOTE | 2018-09-01 18:17 | NUR ---
Assumed care of pT at 0700. pt in no acute distress. hypotensive but stable. morphine given PRN. many family at bedside. anticipate d/c to home with hospice tomorrow. physician notified about writing analgesic prescription so it can be available at discharge. pt progressing toward poc goals.
[2018-09-01 20:28] VITALS: BP 109/53
[2018-09-02 07:28] VITALS: BP 98/50
--- NOTE | 2018-09-02 07:48 | NUR ---
Pt. assisted up to commode at HS to void.He reported shortness of breath with exertion but not too bad. O2 sat in the upper 90's in RA. Medicated for pain with some relief. He slept fair during the night , family members at bedside. Denies need for pain med when he woke up this am. SBP in the upper 90's to low 100's. Bed alarm on. Smear bm this am. Protective barrier to buttom applied. Will continue to monitor.
[2018-09-02 13:55] VITALS: BP 98/50
--- NOTE | 2018-09-02 17:46 | NUR ---
ASSUMED PATIENT CARE AT 0700. A/O X4. PLEASANT. VSS. PAIN MEDS GIVEN NEEDS. FMILY AT BEDSIDE. UP TO BSC WITH ASSISTED. DC TO HOME WITH HOSPICE AT 1700.
== END 2018-09-02 17:20 | disposition hospice, home (50) | DRG 871 ==
LOC: ER 20:54 → EROBS 08-24 00:21 → 4W 08-24 00:21 → ICU 08-24 00:21 → 4W 08-24 01:50 → ICU 08-25 19:20 → 3W 08-29 15:37
PROVIDERS: Emergency Medicine; Hospitalist; Internal Medicine Hematology & Oncology; Internal Medicine Pulmonary Disease; Nurse Practitioner Acute Care; Nurse Practitioner Family; Specialist; Surgery; ADMIT Hospitalist
PROC: 0W9G3ZZ Drainage of Peritoneal Cavity, Percutaneous Approach (ICD-10-PCS; principal; 2018-08-27)
DX: A41.50 Gram-negative sepsis, unspecified (principal); E43 Unspecified severe protein-calorie malnutrition; J96.01 Acute respiratory failure with hypoxia; R65.21 Severe sepsis with septic shock; K26.6 Chronic or unspecified duodenal ulcer with both hemorrhage and perforation; N17.9 Acute kidney failure, unspecified; D61.818 Other pancytopenia; R18.8 Other ascites; C82.33 Follicular lymphoma grade IIIa, intra-abdominal lymph nodes; K52.9 Noninfective gastroenteritis and colitis, unspecified; N18.9 Chronic kidney disease, unspecified; I12.9 Hypertensive chronic kidney disease with stage 1 through stage 4 chronic kidney disease, or unspecified chronic kidney disease; S91.204A Unspecified open wound of right lesser toe(s) with damage to nail, initial encounter; S50.312A Abrasion of left elbow, initial encounter; E53.8 Deficiency of other specified B group vitamins; E03.9 Hypothyroidism, unspecified; K57.90 Diverticulosis of intestine, part unspecified, without perforation or abscess without bleeding; G62.9 Polyneuropathy, unspecified; D46.9 Myelodysplastic syndrome, unspecified; S50.311A Abrasion of right elbow, initial encounter; I73.9 Peripheral vascular disease, unspecified; Z66 Do not resuscitate; W18.39XA Other fall on same level, initial encounter; Y93.01 Activity, walking, marching and hiking; Z51.5 Encounter for palliative care; E87.6 Hypokalemia; E83.42 Hypomagnesemia; Z92.21 Personal history of antineoplastic chemotherapy; Z68.24 Body mass index [BMI] 24.0-24.9, adult; Z98.42 Cataract extraction status, left eye; Z92.3 Personal history of irradiation; Z98.41 Cataract extraction status, right eye; Z79.82 Long term (current) use of aspirin; Z79.899 Other long term (current) drug therapy; Z87.891 Personal history of nicotine dependence; Y92.098 Other place in other non-institutional residence as the place of occurrence of the external cause; Y99.8 Other external cause status
CPT/HCPCS: 10045; 10078; 10779; 10879

== ENCOUNTER 2018-09-07 18:08 | Inpatient (IN) | payer OTHER ==
[~2018-09-07] VITALS: Ht 180.3 cm; Wt 107.1 kg
[~2018-09-07 18:08] MED LIST changes: +AUGMENTIN 500-1 EACH PO; +OPIUM TINC10 MG/1 M1 PO; +OXYCODONE HCL 55 MG PO; +PLAVIX 75 MG TA75 M1 PO
[2018-09-07 18:11] VITALS: BP 122/55
[2018-09-07] MEDS ORDERED: LORAZEPAM 22 MG/1 ML IM (18:37)
[2018-09-07] MEDS ORDERED: MSL20MG/ML PO (18:37)
[2018-09-07] MEDS ORDERED: OPIUM TINC10 MG/1 M1 PO (18:38)
[2018-09-07 19:50] VITALS: BP 91/43
[2018-09-07 20:11] VITALS: BP 93/41
[2018-09-07 20:24] VITALS: BP 96/48
--- NOTE | 2018-09-08 03:56 | NUR ---
PT ADMITTED INTO ROOM 428 AT AROUND 2030 UNDER OBS.PLAN FOR PARACENTESIS TOMORROW. PT HAS NOT REQUIRED ANY PAIN MEDS SINCE COMING TO THE UNIT.PT IS WITH EXTREME ASCITES. GROSS EDEMA TO BLE. PT IS ON 02/2L/NC, WHICH HE SOMETIMES TAKES OFF. PT APPEARS VERY WEAK AND FRAIL.DAUGHTER IN ROOM. IVF INFUSING. NPO SINCE MIDNIGHT.
[2018-09-08 05:21] VITALS: BP 89/47
[2018-09-08 06:00] LABS: HEMATOCRIT 20.8 % (42.0-52.0); HEMOGLOBIN 6.8 gm/dL (14.0-18.0); MCH 29.1 pg (26.0-34.0); MCHC 32.7 g/dL (28.0-37.0); MCV 89.1 fL (80.0-100.0); RBC 2.33 mil/uL (4.50-6.00); RDW 17.1 % (10.5-14.5); WBC 11.2 thou/uL (4.0-11.0)
[2018-09-08 06:06] LABS: INR 1.2; PROTIME 12.8 Seconds (9.3-11.4)
[2018-09-08 06:19] LABS: CALCIUM 7.8 mg/dL (8.5-10.1); CREATININE 3.2 mg/dL (0.7-1.3); POTASSIUM 4.9 mmol/L (3.5-5.1)
[2018-09-08 08:59] VITALS: BP 80/46
--- NOTE | 2018-09-08 11:06 | NUR ---
ASSUMED CARE THIS AM, SHIFT ASSESSMENT DONE, BP LOW THIS AM. NPO SINCE LAST NIGHT. PLAN IS TO PLACE PLURX DRAIN FOR HIS ASCITES. CONSENT SIGNED, WENT DOWN FOR THE PROCEDURE AT 1000 AM. FAMILY AT BEDSIDE AND LEFT WITH PATIENT.
--- NOTE | 2018-09-08 12:31 | NUR ---
Notification of pt with pressure ulcer to sacrum. Chart reviewed, metastatic cancer with hospice care started last week. Anasarca and has required palliative paracentesis. Diet newly advanced as tolerated. Defer further nutrition assessment.
[2018-09-08 14:22] VITALS: BP 90/46
--- NOTE | 2018-09-08 14:23 | NUR ---
BP LOW THIS AM, RECHECKED AT 1330, 90/46, HR 73. DR HARPER NOTIFIED. ALSO MENTIONED ABOUT BILATERAL LOWER EXTERMITY PITTING EDEMA AND DR ZUNIGA'S RECOMMENDATION ABOUT LASIX. DR HARPER INDICATED BP IS LOW AND PATIENT IS AT RIKS OF THIRD SPACING, WE WILL NOT OFFER ANY IV FLUIDS WELL HOLD OF ON LASIX. DURING PLEURX DRAINAGE PLACEMENT, 6L OF FLUIDS WERE TAKEN OUT.
--- NOTE | 2018-09-08 14:30 | NUR ---
ASSESSMENT-PT LIVES AT HOME WITH HIS AND HAD BEEN ON SERVICE WITH HOSPICE. NOTIFIED HOSPICE OF PT'S ADMISSION AND THEY CAME TO HOSPITAL AND FAMILY SIGNED PAPERS TO REVOKE HOSPICE. PT HAD DRAIN PLACED TODAY IN IR. NOTIFIED HOSPICE THAT DC IS ANTICIPATED TOMORROW. DTR CARITO IS AN EMPLOYEE AND WILL ASSIST WITH PT'S CARE AT HOME. FOLLOWING TO ASSIST WITH DC PLANNING. NURSING TO TEACH DTR/FAMILY HOW TO USE ASPIRE DRAIN. TAKE HOME SUPPLIES IN THE ROOM.
[2018-09-08 16:29] VITALS: BP 90/40
[2018-09-08 21:00] VITALS: BP 86/44
--- NOTE | 2018-09-08 23:24 | NUR ---
PATIENTS CARES WERE ASSUMED AT SHIFT CHANGE. PATIENTS WAS ASSESSED AND MEDS WERE PASSED. HOURLY ROUNDING WAS DONE. BED IS IN A LOW AND LOCKED POSITION. FAMILY IS AT THE BEDSIDE.
--- NOTE | 2018-09-09 04:14 | NUR ---
Assumed pt care at approx 2300, report received from offgoing nurse. Medicated per orders x1 for pt report of abdm pain, relief verbalized. BLE edematous, elevated and offloaded heels. Family currently at bedside. Pt currently resing in bed, call light within reach. Will continue to monitor.
[2018-09-09 07:09] VITALS: BP 83/50
[2018-09-09 10:19] VITALS: BP 83/50
[2018-09-09] MEDS ORDERED: FENTANYL1 EAC1 TRANSDERM (12:58)
[2018-09-09] MEDS ORDERED: ATIVAN0.5 MG PO (12:58)
--- NOTE | 2018-09-09 13:59 | NUR ---
FAXED DC ORDERS AND INSTRUCTIONS TO HOSPICE. THEY WILL MEET PT/FAMILY AT 1700 TODAY TO ADMIT TO HOSPICE. S/W DTR CARITO AND SHE WILL PLAN TO TRANSPORT PT HOME AROUND 1600 TODAY. NO OTHER DC NEEDS AT THIS TIME.
--- NOTE | 2018-09-09 16:45 | NUR ---
DC ORDERS RECEIVED, ELA CATH IN PLACE, DC ISTRUCTIONS, SCRIPTS AND F/U APPOINTMENT REVIEWED WITH PT.
== END 2018-09-09 15:53 | disposition hospice, home (50) | DRG 840 ==
LOC: ER 18:08 → 4E 19:28 → EROBS 19:28 → 4E 20:12 → ENTRNSPT 09-09 15:42 → 4E 09-09 15:53
PROVIDERS: Nurse Practitioner Family; ADMIT Internal Medicine
PROC: 0W9G30Z Drainage of Peritoneal Cavity with Drainage Device, Percutaneous Approach (ICD-10-PCS; principal; 2018-09-08)
DX: C82.93 Follicular lymphoma, unspecified, intra-abdominal lymph nodes (principal); N17.0 Acute kidney failure with tubular necrosis; R18.0 Malignant ascites; D61.818 Other pancytopenia; N18.9 Chronic kidney disease, unspecified; R41.81 Age-related cognitive decline; I12.9 Hypertensive chronic kidney disease with stage 1 through stage 4 chronic kidney disease, or unspecified chronic kidney disease; I73.9 Peripheral vascular disease, unspecified; I95.9 Hypotension, unspecified; R33.9 Retention of urine, unspecified; Z51.5 Encounter for palliative care; Z66 Do not resuscitate; I99.8 Other disorder of circulatory system; G62.9 Polyneuropathy, unspecified; Z79.899 Other long term (current) drug therapy; Z79.82 Long term (current) use of aspirin; Z87.891 Personal history of nicotine dependence; Z92.21 Personal history of antineoplastic chemotherapy; Z98.42 Cataract extraction status, left eye; Z98.41 Cataract extraction status, right eye; Z95.9 Presence of cardiac and vascular implant and graft, unspecified
CPT/HCPCS: 10084